=== PATIENT | male | born 1980 | race African-American/Black ===

== ENCOUNTER → 2016-07-27 | Emergency (ER) | payer OTHER ==
[~2016-07-27] MED LIST: INSULIN REGULAR HUMAN 100 UNITS/ML *VIAL IVPUSH ONE; INSULIN REGULAR HUMAN 100 UNITS/ML *VIAL ONE; SODIUM CHLORIDE 1,000 ML IV STA
[2016-07-27 18:38] VITALS: BMI 38.0
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
--- NOTE | 2016-07-27 20:05 | PDOC ---
*Physical Exam - Vital Signs Last Vital Signs Temp Pulse Resp BP Pulse Ox 98 F 99 H 18 155/89 99 07/27/16 18:35 07/27/16 18:35 07/27/16 18:35 07/27/16 18:35 07/27/16 18:35 ED Treatment Course - LABORATORY CBC & Chemistry Diagram: 07/27/16 19:50 07/27/16 23:19 Medical Decision Making - Medical Decision Making 07/27/16 20:05 agree with care from ANA MARIA Gibbons. Glucose is 742. Will give Regular insulin 10 units IVP and fluids to lower blood sugar *DC/Admit/Observation/Transfer Diagnosis at time of Disposition: Hyperglycemia - Discharge Dispostion Disposition: HOME Condition at time of disposition: Improved - Prescriptions Prescriptions: Glipizide [Glucotrol] 20 mg PO DAILY #30 tablet Metformin HCl [Metformin HCl ER] 500 mg PO BID #30 tab.er.24 Lisinopril [Prinivil -] 40 mg PO DAILY #30 tablet - Referrals Referrals: Cheri Diaz MD [Primary Care Provider] - - Patient Instructions Printed Discharge Instructions: DI for Hyperglycemia -- Adult Additional Instructions: Be Sure to fill the medication. 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
[2016-07-27 20:22] LABS: BASOPHIL 0.9 % (0-2.0); EOSINOPHIL 1.9 % (0-4.5); MCHC 32.7 g/dl (32.0-35.9); MEAN CELL VOLUME 82.5 fl (80-96); MEAN PLT VOLUME 9.5 fl (7.5-11.1); NEUTROPHILS 59.3 % (42.8-82.8); PLATELET COUNT 232 K/MM3 (134-434); RDW 13.6 % (11.9-15.9); WHITE BLOOD COUNT 6.1 K/mm3 (4.0-10.0)
[2016-07-27 20:42] LABS: ALBUMIN 3.4 g/dl (3.4-5.0)
[2016-07-27 20:44] LABS: BILIRUBIN,TOTAL 0.8 mg/dL (0.2-1.0); TOT PROT 7.5 g/dl (6.4-8.2)
[2016-07-28 01:48] VITALS: TEMP 98.6
[2016-07-28 03:06] VITALS: BP 133/74; PULSE 82
== END | disposition home or self-care (01) ==
LOC: JER 18:24
PROC: 3E033VG Introduction of Insulin into Peripheral Vein, Percutaneous Approach (ICD-10-PCS; principal; 2016-07-27)
PROC: 3E0337Z Introduction of Electrolytic and Water Balance Substance into Peripheral Vein, Percutaneous Approach (ICD-10-PCS; 2016-07-27)
DX: E11.65 Type 2 diabetes mellitus with hyperglycemia (principal); I10 Essential (primary) hypertension; Z79.84 Long term (current) use of oral hypoglycemic drugs
CPT/HCPCS: 36415; 80053; 82947; 83605; 85025; 96361; 96374; 96376; 99283-25

== ENCOUNTER 2016-09-14 23:23 | Emergency (ER) | payer OTHER ==
[2016-09-15 01:05] VITALS: BP 135/93; PULSE 77; TEMP 98.5; BMI 27.9
[2016-09-15] MEDS ORDERED: SODIUM CHLORIDE 1,000 ML IV STA (01:11)
--- NOTE | 2016-09-15 01:12 | PDOC ---
History of Present Illness - General Chief Complaint: Blood Sugar Problem Stated Complaint: BLOOD SUGAR PROBLEM Time Seen by Provider: 09/15/16 00:42 History Source: Patient - History of Present Illness Initial Comments: 09/15/16 01:45 36 year old male c/o " my sugar is high." i drank a slushee and i have dry mouth." patient reports polyuria. patient reports no diabetes meds x 5 days. history of NIDDM Past History - Travel Traveled outside of the country in the last 30 days: Yes Close contact w/someone who was outside of country & ill: No - Past Medical History Allergies/Adverse Reactions: Allergies Allergy/AdvReac Type Severity Reaction Status Date / Time No Known Allergies Allergy Verified 09/15/16 01:05 Home Medications: Ambulatory Orders Glipizide [Glucotrol] 20 mg PO DAILY #30 tablet 09/15/16 Lisinopril [Prinivil -] 40 mg PO DAILY #30 tablet 09/15/16 Metformin HCl [Metformin HCl ER] 1,000 mg PO BID 09/15/16 Cephalexin [Keflex] 500 mg PO TID #21 capsule 09/30/16 Diabetes: Yes HTN: Yes - Immunization History Immunization Up to Date: Yes - Psycho/Social/Smoking Cessation Hx Suicidal Ideation: No Smoking History: Unknown if ever smoked Have you smoked in the past 12 months: No Number of Cigarettes Smoked Daily: 0 Cigars Per Day: 0 Hx Alcohol Use: No Drug/Substance Use Hx: No Review of Systems - Review of Systems Able to Perform ROS?: Yes Is the patient limited Sami proficient: No Constitutional: No: Symptoms Reported, See HPI, Chills, Diaphoresis, Fever, Loss of Appetite, Malaise, Night Sweats, Weakness, Weight Stable, Unintentional Wgt. Loss, Unexplained wgt Loss, Other ABD/GI: Yes: Other (dry mouth , polyuria) *Physical Exam - Vital Signs Last Vital Signs Temp Pulse Resp BP Pulse Ox 98.5 F 77 16 135/93 96 09/15/16 01:00 09/15/16 01:00 09/15/16 01:00 09/15/16 01:00 09/15/16 01:00 - Physical Exam General Appearance: Yes: Appropriately Dressed Respiratory/Chest: positive: Lungs Clear, Normal Breath Sounds Cardiovascular: positive: Regular Rhythm, Regular Rate Gastrointestinal/Abdominal: positive: Normal Bowel Sounds, Soft Musculoskeletal: positive: Normal Inspection Extremity: positive: Normal Capillary Refill, Normal Inspection, Normal Range of Motion Integumentary: positive: Normal Color, Dry, Warm Neurologic: positive: Fully Oriented, Alert, Normal Mood/Affect ED Treatment Course - LABORATORY CBC & Chemistry Diagram: 09/15/16 01:38 09/15/16 01:38 Medical Decision Making - Medical Decision Making 09/15/16 01:58 A hyperglycemia p : IVF normal saline bolus. dextrose stick. close endocrine follow up. repeat blood glucose decreasing. *DC/Admit/Observation/Transfer Diagnosis at time of Disposition: Hyperglycemia - Discharge Dispostion Disposition: HOME - Prescriptions Prescriptions: Glipizide [Glucotrol] 20 mg PO DAILY #30 tablet Lisinopril [Prinivil -] 40 mg PO DAILY #30 tablet - Referrals Referrals: Jayson Mcmullen MD [Primary Care Provider] - - Patient Instructions Printed Discharge Instructions: DI for Hyperglycemia -- Adult Additional Instructions: follow up with your doctor/ endocrinology as soon as possible. avoid food with high sugar content return to the ER if symptoms worsen.
[2016-09-15 01:52] LABS: MCHC 33.9 g/dl (32.0-35.9); MEAN CELL VOLUME 79.6 fl (80-96); MEAN PLT VOLUME 9.2 fl (7.5-11.1); PLATELET COUNT 282 K/MM3 (134-434); WHITE BLOOD COUNT 7.6 K/mm3 (4.0-10.0)
[2016-09-15 02:18] LABS: ALBUMIN 3.3 g/dl (3.4-5.0); BILIRUBIN,TOTAL 0.6 mg/dL (0.2-1.0); CALCIUM 9.1 mg/dL (8.5-10.1); COCKROFT - GAULT 88.2; CREATININE 1.5 mg/dL (0.7-1.3); TOT PROT 7.5 g/dl (6.4-8.2)
[2016-09-15] MEDS ORDERED: INSULIN REGULAR HUMAN 100 UNITS/ML *VIAL SQ ONE (03:33)
[2016-09-15] MEDS ORDERED: INSULIN REGULAR HUMAN 100 UNITS/ML *VIAL ONE (03:55)
== END 2016-09-15 06:45 | disposition home or self-care (01) ==
LOC: JER 23:23
PROC: 3E013VG Introduction of Insulin into Subcutaneous Tissue, Percutaneous Approach (ICD-10-PCS; principal; 2016-09-14)
PROC: 3E0337Z Introduction of Electrolytic and Water Balance Substance into Peripheral Vein, Percutaneous Approach (ICD-10-PCS; 2016-09-14)
DX: R73.9 Hyperglycemia, unspecified (principal); D11.9 Benign neoplasm of major salivary gland, unspecified; I10 Essential (primary) hypertension
CPT/HCPCS: 36415; 80053; 85027; 96360; 96372; 99282-25

== ENCOUNTER 2016-09-30 04:47 | Emergency (ER) | payer OTHER ==
[2016-09-30] MEDS ORDERED: CEPHALEXIN MONOHYDRATE 500 MG CAPSULE (UD) PO ONE (04:56)
--- NOTE | 2016-09-30 05:00 | PDOC ---
History of Present Illness - General Stated Complaint: ABSCESS/GROIN Time Seen by Provider: 09/30/16 04:50 - History of Present Illness Initial Comments: 09/30/16 05:00 36-year-old male presents to the emergency department complaining of a hard nodule to the mid pubic area. Patient states he noticed it approximately 5 hours ago denies any fever, chills, drainage, red streaks, swelling, difficulty urinating, abdominal discomfort. Patient admits to shaving his pubic area, last time was yesterday. Patient states sometimes he will get ingrown hair causing an abscess. Patient denies any drainage but states the area is the size of a nickel and is hard. Past History - Past Medical History Allergies/Adverse Reactions: Allergies Allergy/AdvReac Type Severity Reaction Status Date / Time No Known Allergies Allergy Verified 09/15/16 01:05 Home Medications: Ambulatory Orders Glipizide [Glucotrol] 20 mg PO DAILY #30 tablet 09/15/16 Lisinopril [Prinivil -] 40 mg PO DAILY #30 tablet 09/15/16 Metformin HCl [Metformin HCl ER] 1,000 mg PO BID 09/15/16 Cephalexin [Keflex] 500 mg PO TID #21 capsule 09/30/16 Diabetes: Yes HTN: Yes - Immunization History Immunization Up to Date: Yes - Psycho/Social/Smoking Cessation Hx Suicidal Ideation: No Smoking History: Unknown if ever smoked Have you smoked in the past 12 months: No Number of Cigarettes Smoked Daily: 0 Cigars Per Day: 0 Hx Alcohol Use: No Drug/Substance Use Hx: No Review of Systems - Review of Systems Able to Perform ROS?: Yes Comments:: 09/30/16 05:02 CONSTITUTIONAL: Absent: fever, chills, diaphoresis, generalized weakness, malaise, loss of appetite HEENT: Absent: rhinorrhea, nasal congestion, throat pain, throat swelling, difficulty swallowing, mouth swelling, ear pain, eye pain, visual Changes CARDIOVASCULAR: Absent: chest pain, loss of consciousness, palpitations, irregular heart rate, peripheral edema RESPIRATORY: Absent: cough, shortness of breath, dyspnea with exertion, orthopnea, wheezing, stridor, hemoptysis GASTROINTESTINAL: Absent: abdominal pain, abdominal distension, nausea, vomiting, diarrhea, constipation, melena, hematochezia GENITOURINARY: Absent: dysuria, frequency, urgency, hesitancy, hematuria, flank pain, genital pain MUSCULOSKELETAL: Absent: myalgia, arthralgia, joint swelling SKIN: mid superior pubic mid nodule/pain Absent: rash, itching, pallor HEMATOLOGIC/IMMUNOLOGIC: Absent: easy bleeding, easy bruising, lymphadenopathy, frequent infections ENDOCRINE: Absent: unexplained weight gain, unexplained weight loss, heat intolerance, cold intolerance NEUROLOGIC: Absent: headache, focal weakness or paresthesias, dizziness, unsteady gait, seizure, mental status changes, bladder or bowel incontinence PSYCHIATRIC: Absent: anxiety, depression, suicidal or homicidal ideation, hallucinations. Is the patient limited Indonesian proficient: No *Physical Exam - Physical Exam Comments: 09/30/16 05:02 GENERAL: Well developed, well nourished. Awake and alert. No acute distress. HEENT: Normocephalic, atraumatic. PERRLA, EOMI. No conjunctival pallor. Sclera are non- icteric. Moist mucous membranes. Oropharynx is clear. NECK: Supple. Full ROM. No JVD. Carotid pulses 2+ and symmetric, without bruits. No thyromegaly. No lymphadenopathy. CARDIOVASCULAR: Regular rate and rhythm. No murmurs, rubs, or gallops. Distal pulses are 2+ and symmetric. PULMONARY: No evidence of respiratory distress. Lungs clear to auscultation bilaterally. No wheezing, rales or rhonchi. ABDOMINAL: Soft. Non-tender. Non-distended. No rebound or guarding. No organomegaly. Normoactive bowel sounds. MUSCULOSKELETAL Normal range of motion at all joints. No bony deformities or tenderness. No CVA tenderness. EXTREMITIES: No cyanosis. No clubbing. No edema. No calf tenderness. SKIN: Mid public superior region/hard nodule without drainage, lymphangitis, erythema Warm and dry. Normal capillary refill. No rashes. No jaundice. NEUROLOGICAL: Alert, awake, appropriate. Cranial nerves 2-12 intact. No deficits to light touch and temperature in face, upper extremities and lower extremities. No motor deficits in the in face, upper extremities and lower extremities. Normoreflexic in the upper and lower extremities. Normal speech. Toes are down- going bilaterally. Gait is normal without ataxia. PSYCHIATRIC: Cooperative. Good eye contact. Appropriate mood and affect. *DC/Admit/Observation/Transfer Diagnosis at time of Disposition: Hidradenitis suppurativa - Discharge Dispostion Disposition: HOME Condition at time of disposition: Stable Admit: No - Prescriptions Prescriptions: Cephalexin [Keflex] 500 mg PO TID #21 capsule - Referrals Referrals: Jayson Mcmullen MD [Primary Care Provider] - Santosh Clement MD [Staff Physician] - - Patient Instructions Printed Discharge Instructions: Hidradenitis Suppurativa Additional Instructions: Warm compress to the groin area 2o mins on and 20 mins off for 48 hours while awake Tyelnol or motrin for pain Rx: keflex as prescribed Return to the ER for severe/persistent/worsening symptoms, red streaks, drainage , fever
[2016-09-30] MEDS ORDERED: CEPHALEXIN MONOHYDRATE 250 MG CAPSULE (FP) ONE (05:11)
--- NOTE | 2016-09-30 05:12 | PDOC ---
ED Treatment Course - Medications Given in the ED: ED Medications Discontinued Medications Generic Name Dose Route Start Last Admin Trade Name Mariann PRN Reason Stop Dose Admin Cephalexin HCl 500 mg 09/30/16 04:56 09/30/16 05:08 Keflex - PO 09/30/16 04:57 500 mg ONCE ONE Administration Medical Decision Making - Medical Decision Making 09/30/16 05:11 agree with care from ANA MARIA Gibbons *DC/Admit/Observation/Transfer Diagnosis at time of Disposition: Abscess - Discharge Dispostion Disposition: HOME Condition at time of disposition: Stable - Prescriptions Prescriptions: Cephalexin [Keflex] 500 mg PO TID #21 capsule - Referrals Referrals: Santosh Clement MD [Staff Physician] - Jayson Mcmullen MD [Primary Care Provider] - - Patient Instructions Printed Discharge Instructions: DI for Skin Abscess Additional Instructions: Warm compress to the groin area 2o mins on and 20 mins off for 48 hours while awake Tyelnol or motrin for pain Rx: keflex as prescribed Return to the ER for severe/persistent/worsening symptoms, red streaks, drainage , fever - Post Discharge Activity
[2016-09-30 05:16] VITALS: BP 126/81; PULSE 81; TEMP 97.7; BMI 39.3
== END 2016-09-30 05:34 | disposition home or self-care (01) ==
LOC: JER 04:47
DX: L73.2 Hidradenitis suppurativa (principal); I10 Essential (primary) hypertension; E11.9 Type 2 diabetes mellitus without complications; Z79.84 Long term (current) use of oral hypoglycemic drugs
CPT/HCPCS: 99282-25

== ENCOUNTER 2016-12-01 23:39 | Emergency (ER) | payer OTHER ==
[2016-12-01 23:43] VITALS: BMI 39.3
[2016-12-02 00:45] LABS: BASOPHIL 0.7 % (0-2.0); EOSINOPHIL 1.3 % (0-4.5); MCH 26.7 pg (25.7-33.7); MCHC 32.5 g/dl (32.0-35.9); MEAN CELL VOLUME 82.2 fl (80-96); MEAN PLT VOLUME 9.6 fl (7.5-11.1); NEUTROPHILS 70.9 % (42.8-82.8); PLATELET COUNT 238 K/MM3 (134-434); RDW 13.8 % (11.9-15.9); WHITE BLOOD COUNT 7.6 K/mm3 (4.0-10.0)
[2016-12-02 01:15] LABS: ANION GAP 11 (8-16); CALCIUM 8.5 mg/dL (8.5-10.1); CO2 26 mmol/L (21-32); CREATININE 1.9 mg/dL (0.7-1.3); SGOT/AST 40 U/L (15-37); SGPT/ALT 76 U/L (12-78)
--- NOTE | 2016-12-02 01:15 | PDOC ---
History of Present Illness - General Chief Complaint: Blood Sugar Problem Stated Complaint: BLOOD SUGAR PROBLEM Time Seen by Provider: 12/01/16 23:50 - History of Present Illness Initial Comments: 12/02/16 01:11 CHIEF COMPLAINT: high blood sugar HISTORY OF PRESENT ILLNESS: 36 yo M with hx of DM and HTN presents to ED with "high blood sugar." Patient states he ran out of his medications two weeks ago and saw his PCP Bijan Mcmullen for prescription refill, but the prescription "didn' t make it to the pharmacy when I went to go pick it up." Patient also complains of painful abscess to L buttock. He reports that "I popped it and it healed over but now it's big and painful again." No recent travel or sick contacts. PAST MEDICAL HISTORY: as per HPI SURGICAL HISTORY: Denies ALLERGIES: Pork REVIEW OF SYSTEMS General/Constitutional: "I felt tired today, I slept all day." HEENT: Denies change in vision. Cardiovascular: Denies chest pain or shortness of breath. Respiratory: Denies cough, wheezing, or hemoptysis. Gastrointestinal: Denies nausea, vomiting, diarrhea or constipation. Genitourinary: Denies dysuria, frequency, or change in urination. Skin: Abscess to L buttock. PHYSICAL EXAM General Appearance: Well-appearing, appropriately dressed. No apparent distress. HEENT: EOMI, PERRLA. Respiratory/Chest: Lungs CTAB. Cardiovascular: RRR. S1, S2. Gastrointestinal/Abdominal: Normal bowel sounds. Abdomen soft, non-distended. No tenderness or rebound tenderness. No organomegaly, pulsatile mass, guarding , hernia, hepatomegal Musculoskeletal/Extremities: Normal inspection. FROM of all extremities, normal capillary refill. Pelvis Stable. No CVA tenderness. No tenderness to extremities, pedal edema, swelling, erythema or deformity. Integumentary: 4 cm x 4 cm indurated abscess to L buttock. Appropriate color, dry, warm. 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 Fully oriented, alert. Appropriate mood/affect. Motor strength 5/5. No appreciable EOM palsy, facial droop or sensory deficit. 12/02/16 03:42 Past History - Past Medical History Allergies/Adverse Reactions: Allergies Allergy/AdvReac Type Severity Reaction Status Date / Time Pork/Porcine Containing Allergy Severe Hives Verified 12/01/16 23:43 Products No Known Drug Allergies Allergy Verified 12/01/16 23:43 Home Medications: Ambulatory Orders Glipizide [Glucotrol] 20 mg PO DAILY #30 tablet 09/15/16 Lisinopril [Prinivil -] 40 mg PO DAILY #30 tablet 09/15/16 Metformin HCl [Metformin HCl ER] 1,000 mg PO BID 09/15/16 Sulfamethoxazole/Trimethoprim [Bactrim Ds Tablet] 1 each PO BID #14 tablet 12/02 Diabetes: Yes HTN: Yes - Surgical History Abdominal Surgery: Yes (Umbilical hernia) Lung Surgery: Yes (Chest tube) - Immunization History Immunization Up to Date: Yes - Psycho/Social/Smoking Cessation Hx Suicidal Ideation: No Smoking History: Never smoked Have you smoked in the past 12 months: No Number of Cigarettes Smoked Daily: 0 Cigars Per Day: 0 Hx Alcohol Use: No Drug/Substance Use Hx: No Substance Use Type: None *Physical Exam - Vital Signs Last Vital Signs Temp Pulse Resp BP Pulse Ox 97.4 F L 79 18 141/90 99 12/01/16 23:40 12/01/16 23:40 12/01/16 23:40 12/01/16 23:40 12/01/16 23:40 Procedures - Incision and Drainage I&D Site: Left: Buttock Betadine cleansed: Yes Anesthesia: 1% Lidocaine w/ Epi Volume(ml): 8 Blade Size: 11 Attempts: 1 Iodinated Packin/2 in (~5 inches) Plain Packing: No Complications: none Dressing: Yes (abdominal pad, dry gauze) Progress: 12/02/16 03:48 I&D performed without complication. Approximately 3 cc of purulent drainage removed from abscess. Iodoform packing placed, covered with abdominal pad and dry gauze. ED Treatment Course - LABORATORY CBC & Chemistry Diagram: 12/02/16 00:33 12/02/16 00:33 - ADDITIONAL ORDERS Additional order review: 12/02/16 00:33 RBC 4.74 MCV 82.2 MCHC 32.5 RDW 13.8 MPV 9.6 Neutrophils % 70.9 Lymphocytes % 18.2 D Monocytes % 8.9 Eosinophils % 1.3 Basophils % 0.7 Medical Decision Making - Medical Decision Making 12/02/16 03:44 36 yo M with hx of DM and HTN presents to ED with "high blood sugar" and abscess to L buttock. -CBC, CMP, acetone -UA, UCx Labs: glucose 760 -8 units regular insulin IV -2 L normal saline Repeat BGM 539, trending down. Abscess drained (see procedure note). -repeat BMP 12/02/16 04:33 Repeat BMP - glucose 481, continues to trend down. Patient is asymptomatic at this time and is stable for discharge. Patient states that he is going to leaf size picker his medication as soon as he is discharged from the hospital. 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 insulin use: without half-way use Qualified Code(s ): E11.65 - Type 2 diabetes mellitus with hyperglycemia - Discharge Dispostion Disposition: HOME Condition at time of disposition: Improved Admit: No - Prescriptions Prescriptions: Sulfamethoxazole/Trimethoprim [Bactrim Ds Tablet] 1 each PO BID #14 tablet - Referrals Referrals: Jayson Mcmullen MD [Staff Physician] - - Patient Instructions Printed Discharge Instructions: DI for Hyperglycemia -- Adult, DI for Incision and Drainage of a Skin Abscess Additional Instructions: As discussed, you must leaf size picker your medication as soon as possible. Please take all your medications as prescribed. Keep the area of abscess clean and dry for the next 24 hours. Afterwards you may wash with mild soap and water. You must return in 2 days for removal of the packing material. If the packing material falls out, you must still return for reevaluation. If you develop fever, nausea, vomiting, diarrhea, increased pain, redness, or swelling to the site of the wound, please return to the ER immediately.
[2016-12-02 01:17] LABS: ALK PHOS 115 U/L (45-117); BILIRUBIN,TOTAL 0.6 mg/dL (0.2-1.0); TOT PROT 7.8 g/dl (6.4-8.2)
[2016-12-02 01:21] LABS: GLUCOSE,RANDOM 760 mg/dL (74-106)
[2016-12-02] MEDS ORDERED: INSULIN (NOVOLOG) ASPART 100 UNITS/ML 10ML VIAL SQ ONE (01:23)
[2016-12-02] MEDS ORDERED: SODIUM CHLORIDE 0.9% 1000 ML INFUS.BAG IV ONE (01:24)
[2016-12-02 01:26] LABS: ACETONE SERUM NEGATIVE (NEGATIVE)
[2016-12-02] MEDS ORDERED: SODIUM CHLORIDE 0.9% 500 ML INFUS.BAG IV ONE (01:30)
[2016-12-02] MEDS ORDERED: INSULIN REGULAR HUMAN 100 UNITS/ML *VIAL IVPUSH ONE (01:30)
[2016-12-02] MEDS ORDERED: INSULIN REGULAR HUMAN 100 UNITS/ML *VIAL ONE (01:35)
[2016-12-02 01:48] LABS: URINE APPEARANCE CLEAR; URINE BILIRUBIN NEGATIVE (NEGATIVE); URINE BLOOD NEGATIVE (NEGATIVE); URINE COLOR COLORLESS; URINE GLUCOSE (UA) 3+ (NEGATIVE); URINE KETONE NEGATIVE (NEGATIVE); URINE LEUK ESTERASE NEGATIVE (NEGATIVE); URINE NITRITE NEGATIVE (NEGATIVE); URINE UROBILINOGEN NEGATIVE mg/dL (0.2-1.0)
[2016-12-02 01:52] LABS: URINE PROTEIN 1+ (NEGATIVE)
[2016-12-02 01:55] LABS: URINE RBC <1 /hpf (0-3); URINE WBC <1 /hpf (3-5)
[2016-12-02] MEDS ORDERED: LIDOCAINE 1%/EPI 1:100000 (50 ML MULTI DOSE VIAL) ONE (03:04)
[2016-12-02 04:28] LABS: ANION GAP 8 (8-16); CALCIUM 8.2 mg/dL (8.5-10.1); CO2 28 mmol/L (21-32); CREATININE 1.5 mg/dL (0.7-1.3)
[2016-12-02 04:33] LABS: GLUCOSE,RANDOM 481 mg/dL (74-106)
[2016-12-02 04:45] VITALS: BP 152/63; PULSE 78; TEMP 98.2
== END 2016-12-02 04:46 | disposition home or self-care (01) ==
LOC: JER 23:39
PROC: 0J990ZZ Drainage of Buttock Subcutaneous Tissue and Fascia, Open Approach (ICD-10-PCS; principal; 2016-12-01)
PROC: 3E033VG Introduction of Insulin into Peripheral Vein, Percutaneous Approach (ICD-10-PCS; 2016-12-01)
DX: E11.65 Type 2 diabetes mellitus with hyperglycemia (principal); L02.31 Cutaneous abscess of buttock; Z79.84 Long term (current) use of oral hypoglycemic drugs; I10 Essential (primary) hypertension
CPT/HCPCS: 36415; 80048; 80053; 81003; 81015; 82009; 83605; 85025; 87070; 87086; 87186; 87205; 99283-25

== ENCOUNTER 2016-12-05 02:26 | Emergency (ER) | payer OTHER ==
[2016-12-05 02:34] VITALS: BP 131/86; PULSE 85; TEMP 97.9; BMI 39.3
--- NOTE | 2016-12-05 04:06 | PDOC ---
Attending Attestation - Resident Resident Name: Michael Mayorga - ED Attending Attestation I have performed the following: I have examined & evaluated the patient, The case was reviewed & discussed with the resident, I agree w/resident's findings & plan, Exceptions are as noted - HPI HPI: 12/05/16 04:04 36 yo M presenting to the ER for re evaluation of Left buttock abscess re evaluation Pt denies fevers or chills is currently taking antibiotics (+) tenderness - Physicial Exam PE: 12/05/16 04:06 Left buttock 1.5 cm laceration - Medical Decision Making 12/05/16 04:17 Left buttock wound indurated Will re pack Will ask pt to continue antibiotics Return to the ER for re evaluation Discharge Disposition - Diagnosis Abscess - Discharge Dispostion Disposition: HOME Condition at time of disposition: Stable Admit: No - Patient Instructions Printed Discharge Instructions: DI for Skin Abscess Additional Instructions: Thank you for coming to the ER today Please return to the ER in 48 hours for wound re evaluation Please continue taking antibiotics as prescribed
--- NOTE | 2016-12-05 04:29 | PDOC ---
Suture Removal/Wound Check HPI - History of Present Illness Chief Complaint: Revisit,Wound Recheck Stated Complaint: FOLLOW UP Time Seen by Provider: 12/05/16 03:06 History Source: Yes: Patient Exam Limitations: Yes: No Limitations Date of Last ED visit: 12/02/16 - Previous ED Treatment Type of procedure performed on last visit: Yes: I&D of Abscess Antibiotics Prescribed: Yes (Bactrim) Past History - Past Medical History Allergies/Adverse Reactions: Allergies Pork/Porcine Containing Products Allergy (Severe, Verified 12/05/16 02:32) Hives No Known Drug Allergies Allergy (Verified 12/05/16 02:32) Home Medications: Ambulatory Orders Glipizide [Glucotrol] 20 mg PO DAILY #30 tablet 09/15/16 Lisinopril [Prinivil -] 40 mg PO DAILY #30 tablet 09/15/16 Metformin HCl [Metformin HCl ER] 1,000 mg PO BID 09/15/16 Sulfamethoxazole/Trimethoprim [Bactrim Ds Tablet] 1 each PO BID #14 tablet 12/02 - Immunization History Immunizations Up to Date: Yes - Social History Smoking Status: Never smoked Number of Ciarettes Per Day: 0 Cigars Per Day: 0 Suture Removal/Wound Check PE - Physical Exam Laceration/Wound Check Symptoms: reports: Improved Comments: 12/05/16 04:28 left buttock Comments: 12/05/16 04:28 7cm circular area, darkened and slightly indurated with no purulence noted. Packing tape still in place. *Review of Systems - Review of Systems Constitutional: No: Symptoms Reported HEENTM: No: Symptoms Reported Respiratory: No: Symptoms reported Cardiac (ROS): No: Symptoms Reported ABD/GI: No: Symptoms Reported : No: Symptoms Reported Musculoskeletal: No: Symptoms Reported Integumentary: No: Symptoms Reported Neurological: No: Symptoms reported Procedures - Incision and Drainage Plain Packing: Yes (Removal of old packing, no purulence noted, repacked with plain packing ) Medical Decision Making - Medical Decision Making 12/05/16 04:31 36 yo M with hx of DM and HTN presents to ED for wound check of abscess to L buttock s/p I&D 3 days ago. Packing removed, slight induration, no purulence, repacked with plain packing. Redressed. D/C. Come back in 2 days.. *DC/Admit/Observation/Transfer Diagnosis at time of Disposition: Abscess, Abscess of left buttock, Follow-up arranged for 2-3 days - Discharge Dispostion Disposition: HOME Condition at time of disposition: Stable - Referrals Referrals: Jayson Mcmullen MD [Primary Care Provider] - - Patient Instructions Printed Discharge Instructions: DI for Skin Abscess Additional Instructions: Thank you for coming to the ER today Please return to the ER in 48 hours for wound re evaluation Please continue taking antibiotics as prescribed - Post Discharge Activity
== END 2016-12-05 04:45 | disposition home or self-care (01) ==
LOC: JER 02:26
DX: Z48.01 Encounter for change or removal of surgical wound dressing (principal); L02.31 Cutaneous abscess of buttock
CPT/HCPCS: 99281-25

== ENCOUNTER 2016-12-14 09:38 | Emergency (ER) | payer OTHER ==
[2016-12-14 09:46] VITALS: BP 140/77; PULSE 89; TEMP 98.3; BMI 38.6
--- NOTE | 2016-12-14 10:16 | PDOC ---
Suture Removal/Wound Check HPI - History of Present Illness Chief Complaint: Revisit,Wound Recheck Stated Complaint: FOLLOW-UP Time Seen by Provider: 12/14/16 10:09 History Source: Yes: Patient Exam Limitations: Yes: No Limitations Treated at: [facility] ED (Patient was here initially on 12/02/2016 for blood sugar evaluation as well as left buttock abscess, initial draining was performed on that day and packing was placed patient then followed up on . Area was redressed and packed again patient states that they told him to leave the packing in until he followed up in 2 days however patient states she's been busy and has not followed up. Has been in place since 12/05/16. Upon arrival, packing was removed foul odor was noted area is mildly indurated with no surrounding erythema or warmth. It appears to be responding well to Bactrim will extend Bactrim for another 5 days. Patient to follow-up at wound care or if any increased redness swelling or signs of infection will need to return back to ER.) Date of Last ED visit: 12/02/16 - Previous ED Treatment Type of procedure performed on last visit: Yes: I&D of Abscess Tetanus Immunization: Yes: Up to Date Past History - Past Medical History Allergies/Adverse Reactions: Allergies Pork/Porcine Containing Products Allergy (Severe, Verified 12/14/16 09:45) Hives No Known Drug Allergies Allergy (Verified 12/14/16 09:45) Home Medications: Ambulatory Orders Glipizide [Glucotrol] 20 mg PO DAILY #30 tablet 09/15/16 Lisinopril [Prinivil -] 40 mg PO DAILY #30 tablet 09/15/16 Metformin HCl [Metformin HCl ER] 1,000 mg PO BID 09/15/16 Sulfamethoxazole/Trimethoprim [Bactrim Ds Tablet] 1 each PO BID #14 tablet 12/02 Sulfamethoxazole/Trimethoprim [Bactrim Ds -] 1 tab PO BID #10 tablet 12/14/16 General: Yes: diabetes, hypertension Surgical History: Yes: No Surgical History - Immunization History Immunizations Up to Date: Yes - Social History Smoking Status: Never smoked Number of Ciarettes Per Day: 0 Cigars Per Day: 0 Suture Removal/Wound Check PE - Physical Exam Laceration/Wound Check Symptoms: reports: None, Improved. denies: Redness Current Severity Level: Mild *Review of Systems - Review of Systems Constitutional: No: Symptoms Reported Respiratory: No: Symptoms reported Cardiac (ROS): No: Symptoms Reported Musculoskeletal: No: Symptoms Reported Integumentary: Yes: Other ( area around incision mildly indurated, packing was removed, no erythema or warmth. ). No: Erythema Neurological: No: Symptoms reported Hematologic/Lymphatic: No: Symptoms Reported All Other Systems: Reviewed and Negative Medical Decision Making - Medical Decision Making 12/14/16 10:21 *DC/Admit/Observation/Transfer Diagnosis at time of Disposition: Wound check, abscess - Discharge Dispostion Disposition: HOME Condition at time of disposition: Good Admit: No - Prescriptions Prescriptions: Sulfamethoxazole/Trimethoprim [Bactrim Ds -] 1 tab PO BID #10 tablet - Referrals Referrals: Jayson Mcmullen MD [Primary Care Provider] - - Patient Instructions Printed Discharge Instructions: DI for Wound Infection Additional Instructions: Please monitor daily for any increased redness swelling or signs of infection. Antibiotics as ordered for the next 5 days please make sure to change dressing daily dry dressing, make sure to showering cleanse area with warm water and antibacterial soap. Allow to air dry before applying new dressing
== END 2016-12-14 10:26 | disposition home or self-care (01) ==
LOC: JER 09:38 → JERFT 09:38
DX: Z48.01 Encounter for change or removal of surgical wound dressing (principal); L02.31 Cutaneous abscess of buttock
CPT/HCPCS: 99281-25

== ENCOUNTER 2017-06-02 23:53 | Emergency (ER) | payer OTHER ==
[2017-06-03 01:17] VITALS: BP 122/88; PULSE 91; TEMP 98.4; BMI 40.6
[2017-06-03] MEDS ORDERED: SODIUM CHLORIDE 1,000 ML IV STA (01:29)
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
[2017-06-03 01:54] LABS: VENOUS PC02 40.1 mmHg (38-52); VENOUS PH 7.41 (7.32-7.42)
[2017-06-03 01:55] LABS: VENOUS PO2 37.7 mmHg (28-48)
[2017-06-03 02:02] LABS: BASO % 0.9 % (0-2.0); EOS % 1.4 % (0-4.5); HEMOGLOBIN 12.1 GM/dL (11.7-16.9); LYMPH % 26.6 % (8-40); MCH 26.6 pg (25.7-33.7); MCHC 32.8 g/dl (32.0-35.9); MEAN CELL VOLUME 81.3 fl (80-96); MEAN PLT VOLUME 8.8 fl (7.5-11.1); MONO % 9.2 % (3.8-10.2); NEUT % 61.9 % (42.8-82.8); PLATELET COUNT 267 K/MM3 (134-434); RBC 4.55 M/mm3 (4.00-5.60); RDW 13.6 % (11.9-15.9); WHITE BLOOD COUNT 7.2 K/mm3 (4.0-10.0)
[2017-06-03 02:29] LABS: ALBUMIN 2.8 g/dl (3.4-5.0); ANION GAP 6 (8-16); BLOOD UREA NITROGEN 16 mg/dL (7-18); CALCIUM 8.4 mg/dL (8.5-10.1); CHLORIDE 100 mmol/L (98-107); CO2 28 mmol/L (21-32); CREATININE 1.7 mg/dL (0.7-1.3); GLUCOSE,RANDOM 288 mg/dL (74-106); SGOT/AST 25 U/L (15-37); SGPT/ALT 52 U/L (12-78); SODIUM 134 mmol/L (136-145)
[2017-06-03 02:31] LABS: ALK PHOS 89 U/L (45-117); BILIRUBIN,TOTAL 0.7 mg/dL (0.2-1.0); TOT PROT 7.5 g/dl (6.4-8.2)
== END 2017-06-03 03:45 | disposition home or self-care (01) ==
LOC: JER 23:53
PROC: 3E0337Z Introduction of Electrolytic and Water Balance Substance into Peripheral Vein, Percutaneous Approach (ICD-10-PCS; principal; 2017-06-02)
DX: E11.65 Type 2 diabetes mellitus with hyperglycemia (principal); Z79.84 Long term (current) use of oral hypoglycemic drugs; I10 Essential (primary) hypertension
CPT/HCPCS: 36415; 80053; 82009; 82803; 82962; 85025; 99282-25

== ENCOUNTER 2018-06-18 03:53 | Emergency (ER) | payer OTHER ==
--- NOTE | 2018-06-18 04:14 | PDOC ---
History of Present Illness - General Stated Complaint: FALL/LEG SWOLLEN Time Seen by Provider: 06/18/18 04:07 History Source: Patient, Old Records Exam Limitations: No Limitations - History of Present Illness Initial Comments: 06/18/18 04:15 HISTORY OF PRESENT ILLNESS: 38-year-old male past medical history NIDDM who presents emergency department for evaluation of right knee pain status post slip and fall at 11:00 in the morning on 06/17. Patient stated he twisted his knee on the way to the ground after slipping on ice. He fell to the ground but did not strike his knee on any railings or the ground. Patient denies striking his head. Patient reports he was able to get up and walk immediately after the injury but the pain has not improved since that time which is why he is seeking care now. No recent travel or sick contacts. PAST MEDICAL HISTORY: NIDDM SURGICAL HISTORY: Denies ALLERGIES: No known drug allergies REVIEW OF SYSTEMS General/Constitutional: Denies fever or chills. Denies weakness, weight change. HEENT: Denies change in vision. Denies ear pain or discharge. Denies sore throat. Cardiovascular: Denies chest pain or shortness of breath. Respiratory: Denies cough, wheezing, or hemoptysis. Gastrointestinal: Denies nausea, vomiting, diarrhea or constipation. Denies rectal bleeding. Genitourinary: Denies dysuria, frequency, or change in urination. Musculoskeletal:Right knee swelling and pain. Denies neck or back pain. Skin and breasts: Denies rash or easy bruising. Neurologic: Denies headache, vertigo, loss of consciousness, or loss of sensation. Psychiatric: Denies depression or anxiety. Endocrine: Denies increased thirst. Denies abnormal weight change. Hematologic/Lymphatic: Denies anemia, easy bleeding, or history of blood clots. Allergic/Immunologic: Denies hives or skin allergy. Denies latex allergy. PHYSICAL EXAM General Appearance: Well-appearing, appropriately dressed. No apparent distress , no intoxication. Respiratory/Chest: Lungs CTAB. No shortness of breath, chest tenderness, respiratory distress, accessory muscle use. No crackles, rales, rhonchi, stridor , wheezing, dullness Cardiovascular: RRR. S1, S2. No JVD, murmur, bradycardia, tachycardia. Vascular Pulses: Dorsalis-Pedis (R): 2+, Dorsalis-Pedis (L): 2+ Musculoskeletal/Extremities: Normal inspection. Normal capillary refill. Pelvis Stable. No CVA tenderness. No tenderness to extremities, pedal edema, swelling, erythema or deformity. (-)Cassandra's test. Decreased flexion of right knee due to pain. Patella is mobile. Swelling present to infrapatellar region. No bony tenderness. Integumentary: Appropriate color, dry, warm. No cyanosis, erythema, jaundice or rash Neurologic: lure maker II-XII intact. Fully oriented, alert. Appropriate mood/affect. Motor strength 5/5. No appreciable EOM palsy, facial droop or sensory deficit. Past History - Past Medical History Allergies/Adverse Reactions: Allergies Allergy/AdvReac Type Severity Reaction Status Date / Time Pork/Porcine Containing Allergy Severe Hives Verified 06/18/18 04:18 Products No Known Drug Allergies Allergy Verified 06/18/18 04:18 Home Medications: Ambulatory Orders Glipizide [Glucotrol] 20 mg PO DAILY #30 tablet 09/15/16 Lisinopril [Prinivil -] 40 mg PO DAILY #30 tablet 09/15/16 metFORMIN HCL [Metformin ER Osmotic] 1,000 mg PO BID 09/15/16 COPD: No Diabetes: Yes HTN: Yes - Surgical History Abdominal Surgery: Yes (Umbilical hernia) Lung Surgery: Yes (Chest tube) - Immunization History Immunization Up to Date: Yes - Suicide/Smoking/Psychosocial Hx Smoking History: Never smoked Have you smoked in the past 12 months: No Number of Cigarettes Smoked Daily: 0 Cigars Per Day: 0 Hx Alcohol Use: No Drug/Substance Use Hx: No Substance Use Type: None Medical Decision Making - Medical Decision Making 06/18/18 04:19 A/P: 38-year-old male with right knee pain status post slip and fall on ice Patient is ambulatory with limp Negative Cassandra test No bony tenderness to palpation Swelling present in the infrapatellar region X-rays Motrin 600 mg orally now Reassess 06/18/18 04:28 X-rays of the knee as read by me: No acute fractures or subluxations present. Knee immobilizer Crutches Discharge home *DC/Admit/Observation/Transfer Diagnosis at time of Disposition: Right medial knee pain - Discharge Dispostion Disposition: HOME Condition at time of disposition: Stable Decision to Admit order: No - Referrals Referrals: Jayson Mcmullen MD [Primary Care Provider] - Kirby Ferrera MD [Staff Physician] - - Patient Instructions Additional Instructions: Take Tylenol or Motrin as needed for pain. Follow manufacturers instructions for appropriate dosage. Try not to walk or bear weight on your right knee as much as possible for the next 3 days. Apply ice for 20 minutes and removed for at least 20 minutes before reapplying the ice. Keep immobilizer on your knee as much as possible to control pain. Whenever possible keep her foot elevated. You've been given the number for an orthopedist. If symptoms do not resolve within the next 7 days call the orthopedist for further evaluation. Return to emergency department for discoloration of the foot, numbness or tingling to the foot, worsening pain, or any other concerns. Thank you very much for choosing us to provide your emergent healthcare needs. - Post Discharge Activity
[2018-06-18] MEDS ORDERED: IBUPROFEN 600 MG TABLET (FP) PO ONE ×2 (04:15→04:26)
[2018-06-18 04:19] VITALS: BP 147/67; PULSE 88; TEMP 97.3; BMI 35.2
== END 2018-06-18 04:38 | disposition home or self-care (01) ==
LOC: JER 03:53
DX: M25.561 Pain in right knee (principal); W00.2XXA Other fall from one level to another due to ice and snow, initial encounter; Y93.89 Activity, other specified; Y92.480 Sidewalk as the place of occurrence of the external cause; Y99.8 Other external cause status; I10 Essential (primary) hypertension; E11.9 Type 2 diabetes mellitus without complications; Z79.84 Long term (current) use of oral hypoglycemic drugs
CPT/HCPCS: 73560-TC-RT-FY; 99283-25

== ENCOUNTER 2018-08-16 18:01 | Emergency (ER) | payer OTHER ==
[2018-08-16 18:05] VITALS: BP 142/89; PULSE 79; TEMP 98.4; BMI 36.6
--- NOTE | 2018-08-16 18:06 | PDOC ---
Rapid Medical Evaluation Time Seen by Provider: 08/16/18 18:02 Medical Evaluation: Allergies Allergy/AdvReac Type Severity Reaction Status Date / Time Pork/Porcine Containing Allergy Severe Hives Verified 06/18/18 04:18 Products No Known Drug Allergies Allergy Verified 06/18/18 04:18 08/16/18 18:02 Pt presents to the ED for evaluation of his blood sugar. Pt states his glucometer is broken. Pt with IDDM. Admits to dry mouth and urinary frequency, polydipsia Exam: NAD, ambulatory Orders; labs, IV insert urine Pt to proceed to the ED for further evaluation Discharge Disposition - Diagnosis Polydipsia - Referrals - Patient Instructions - Post Discharge Activity
--- NOTE | 2018-08-16 19:18 | PDOC ---
Attending Attestation - Resident Resident Name: Janie Potter - ED Attending Attestation I have performed the following: I have examined & evaluated the patient, The case was reviewed & discussed with the resident, I agree w/resident's findings & plan
--- NOTE | 2018-08-16 20:24 | PDOC ---
Attending Attestation - HPI HPI: 08/16/18 20:25 Patient is a 38 year old male with a significant past medical history of Diabetes, who presents to the ED requesting multiple medication refills. Patient reports being non compliant with medication for multiple weeks stating he has been unable to refill his prescription of insulin as well as lisinopril and metformin due to inssues with his medical insurance. He denies any current complaints while in the ED but he states he does not own a glucometer and wants his blood sugar checked. Denies chest pain, Sob. Denies nausea, vomiting. Denies fevers, chills. Denies dysuria, hematuria. Denies constipation, diarrhea. Denies contact with sick individuals, out of state travelling. Denies any other symptoms. Allergies: NKDA Social history: No smoking. No alcohol. No illicit drugs. Surgical history: None PMD: Dr. Mcmullen - Physicial Exam PE: 08/16/18 20:25 Agree with residents Physical Exam. <Bossman Scott - Last Filed: 08/16/18 20:25> - Resident Resident Name: Eliseo Vazquez - ED Attending Attestation I have performed the following: I have examined & evaluated the patient, The case was reviewed & discussed with the resident, I agree w/resident's findings & plan - Medical Decision Making 08/16/18 21:04 38-year-old male requesting medication refill for his antihypertensives as well as insulin and oral hypoglycemics Patient has no additional complaints at this time Plan for blood sugar check and discharged with scripts as indicated He states he does have a primary care physician which she does have access to and will follow up with them <Lali Goldberg - Last Filed: 08/16/18 21:07>
--- NOTE | 2018-08-16 20:49 | PDOC ---
History of Present Illness - General Chief Complaint: Blood Sugar Problem Stated Complaint: SUGAR PROBLEM Time Seen by Provider: 08/16/18 18:02 History Source: Patient Exam Limitations: No Limitations - History of Present Illness Initial Comments: 08/16/18 20:49 Patient is a 38M with history of IDDM and HTN here today complaining of blood sugar issues. He states that he ran out of his insulin, htn meds, and metformin for the past several weeks due to insurance issues. He also reports that he doesn't have a glucometer. He denies other complaints. Denies fevers, chills, nausea, vomiting, chest pain, dysuria. Endorses dry mouth and urinary frequency. Denies abdominal pain. Past History - Past Medical History Allergies/Adverse Reactions: Allergies Allergy/AdvReac Type Severity Reaction Status Date / Time Pork/Porcine Containing Allergy Severe Hives Verified 06/18/18 04:18 Products No Known Drug Allergies Allergy Verified 06/18/18 04:18 Home Medications: Ambulatory Orders Glipizide [Glucotrol] 20 mg PO DAILY #30 tablet 09/15/16 Lisinopril [Prinivil -] 40 mg PO DAILY #30 tablet 09/15/16 metFORMIN HCL [Metformin ER Osmotic] 1,000 mg PO BID 09/15/16 Lisinopril [Prinivil -] 40 mg PO DAILY #30 tablet 08/16/18 Metformin HCl [Glucophage] 500 mg PO BID #60 tablet 08/16/18 COPD: No Diabetes: Yes HTN: Yes - Surgical History Abdominal Surgery: Yes (Umbilical hernia) Lung Surgery: Yes (Chest tube) - Immunization History Immunization Up to Date: Yes - Suicide/Smoking/Psychosocial Hx Smoking History: Former smoker Have you smoked in the past 12 months: No Number of Cigarettes Smoked Daily: 0 If you are a former smoker, when did you quit?: long time ago Cigars Per Day: 0 Information on smoking cessation initiated: No Hx Alcohol Use: No Drug/Substance Use Hx: No Substance Use Type: None Review of Systems - Review of Systems Able to Perform ROS?: Yes Comments:: 08/16/18 20:58 GENERAL/CONSTITUTIONAL: No fever or chills. No weakness. HEAD, EYES, EARS, NOSE AND THROAT: No change in vision. No sore throat. CARDIOVASCULAR: No chest pain or shortness of breath RESPIRATORY: No cough, wheezing, or hemoptysis. GASTROINTESTINAL: No nausea, vomiting, diarrhea or constipation. GENITOURINARY: No dysuria, +polyuria MUSCULOSKELETAL: No joint or muscle swelling or pain. No neck or back pain. SKIN: No rash NEUROLOGIC: No headache, vertigo, loss of consciousness, or change in strength/ sensation. ENDOCRINE: No increased thirst. No abnormal weight change HEMATOLOGIC/LYMPHATIC: No anemia, easy bleeding, or history of blood clots. ALLERGIC/IMMUNOLOGIC: No hives or skin allergy. *Physical Exam - Vital Signs Last Vital Signs Temp Pulse Resp BP Pulse Ox 98.4 F 79 18 142/89 97 08/16/18 18:04 08/16/18 18:04 08/16/18 18:04 08/16/18 18:04 08/16/18 18:04 - Physical Exam Comments: 08/16/18 20:58 GENERAL: Awake, alert, and fully oriented, in no acute distress HEAD: No signs of trauma, normocephalic, atraumatic EYES: PERRLA, EOMI, sclera anicteric, conjunctiva clear ENT: Auricles normal inspection, hearing grossly normal, nares patent, oropharynx clear without exudates. Moist mucosa NECK: Normal ROM, supple, no lymphadenopathy, JVD, or masses LUNGS: No distress, speaks full sentences, clear to auscultation bilaterally HEART: Regular rate and rhythm, normal S1 and S2, no murmurs, rubs or gallops, peripheral pulses normal and equal bilaterally. ABDOMEN: Soft, nontender, normoactive bowel sounds. No guarding, no rebound. No masses EXTREMITIES: Normal inspection, Normal range of motion, no edema. No clubbing or cyanosis. NEUROLOGICAL: Cranial nerves II through XII grossly intact. Normal speech, normal gait, no focal sensorimotor deficits SKIN: Warm, Dry, normal turgor, no rashes or lesions noted. ED Treatment Course - LABORATORY CBC & Chemistry Diagram: 08/16/18 21:10 08/16/18 21:10 - ADDITIONAL ORDERS Additional order review: Laboratory Results 08/16/18 20:15 POC Glucometer 330 08/16/18 20:15 POC Glucometer 330 Medical Decision Making - Medical Decision Making 08/16/18 20:59 Patient is a 38M here today seeking medication refills and blood sugar check. Fingerstick is 330. No signs of dka or infectious process. Will order basic labs , give sq insulin, dc with home meds. Takes lisinopril 40, metformin 500. Will not prescribe insulin as he is unsure of dose. Has PCP. Instructed to f/u. 08/16/18 22:03 CBC normal. CMP shows no gap. No acetone. Cr mildly elevated. Pending insulin and glucose recheck. Will discharge with instructions to follow up with PCP. *DC/Admit/Observation/Transfer Diagnosis at time of Disposition: Hyperglycemia - Discharge Dispostion Condition at time of disposition: Good Decision to Admit order: No - Prescriptions Prescriptions: Lisinopril [Prinivil -] 40 mg PO DAILY #30 tablet Metformin HCl [Glucophage] 500 mg PO BID #60 tablet - Referrals Referrals: Jayson Mcmullen MD [Primary Care Provider] - - Patient Instructions Printed Discharge Instructions: DI for Hyperglycemia -- Adult Additional Instructions: Please follow up with your primary care physician this week. Please return if you have any new, worsening or concerning symptoms, especially fever, chest pain and shortness of breath. - Post Discharge Activity
[2018-08-16] MEDS ORDERED: INSULIN REGULAR HUMAN 100 UNITS/ML *VIAL SQ ONE (21:00)
[2018-08-16 21:20] LABS: BASO % 0.9 % (0-2.0); EOS % 2.1 % (0-4.5); HEMATOCRIT 39.7 % (35.4-49); LYMPH % 23.6 % (8-40); MCH 26.6 pg (25.7-33.7); MCHC 32.8 g/dl (32.0-35.9); MEAN CELL VOLUME 80.9 fl (80-96); NEUT % 65.4 % (42.8-82.8); PLATELET COUNT 263 K/MM3 (134-434); RDW 14.3 % (11.9-15.9); WHITE BLOOD COUNT 8.9 K/mm3 (4.0-10.0)
[2018-08-16] MEDS ORDERED: INSULIN REGULAR HUMAN 100 UNITS/ML *VIAL ONE (21:45)
[2018-08-16] MEDS ORDERED: INSULIN (NOVOLOG) ASPART 100 UNITS/ML 10ML VIAL ONE (21:47)
[2018-08-16 21:55] LABS: ALBUMIN 3.5 g/dl (3.4-5.0); ALK PHOS 98 U/L (45-117); ANION GAP 8 MMOL/L (8-16); BILIRUBIN,TOTAL 0.7 mg/dL (0.2-1); BLOOD UREA NITROGEN 22 mg/dL (7-18); CALCIUM 9.1 mg/dL (8.5-10.1); CHLORIDE 102 mmol/L (98-107); CO2 24 mmol/L (21-32); CREATININE 1.7 mg/dL (0.55-1.3); POTASSIUM 3.9 mmol/L (3.5-5.1); SGOT/AST 7 U/L (15-37); SGPT/ALT 17 U/L (13-61); SODIUM 134 mmol/L (136-145); TOT PROT 7.7 g/dl (6.4-8.2)
[2018-08-16 21:57] LABS: GLUCOSE,RANDOM 332 mg/dL (74-106)
[2018-08-16 22:01] LABS: ACETONE SERUM NEGATIVE (NEGATIVE)
== END 2018-08-16 23:42 | disposition home or self-care (01) ==
LOC: JER 18:01
PROC: 3E013VG Introduction of Insulin into Subcutaneous Tissue, Percutaneous Approach (ICD-10-PCS; principal; 2018-08-16)
DX: E11.65 Type 2 diabetes mellitus with hyperglycemia (principal); Z87.891 Personal history of nicotine dependence; I10 Essential (primary) hypertension
CPT/HCPCS: 36415; 80053; 82009; 82962; 85025; 99281-25

== ENCOUNTER 2018-09-07 02:49 | Emergency (ER) | payer SELFPAY ==
[2018-09-07 03:17] VITALS: TEMP 97.1; BMI 37.3
[2018-09-07] MEDS ORDERED: SODIUM CHLORIDE 1,000 ML IV STA ×2 (03:22)
[2018-09-07 03:56] LABS: VENOUS PC02 47.5 mmHg (41-51); VENOUS PH 7.34 (7.31-7.41); VENOUS PO2 39.1 mmHg (30-40)
--- NOTE | 2018-09-07 04:02 | PDOC ---
History of Present Illness - General Chief Complaint: Blood Sugar Problem Stated Complaint: BLOOD SUGAR PROBLEM Time Seen by Provider: 09/07/18 03:20 - History of Present Illness Initial Comments: 09/07/18 03:56 38 yo M with h/o IDDM, hidradenitis, who p/w hyperglycemia. Patient reports 3-4 days of increased urinary frequency, dry mouth, and general malaise. States that he typically feels this way when his blood sugar is high and uncontrolled. The last time he took home insulin regimen ( Lantus, and Novolog) was one week ago. States that he ran out of insurance to purchase medications. Does not check his blood sugars at home. Reports h/o ICU admission for high blood sugars. Patient denies BOLAÑOS, vision change, palpitations, cough, wheezing, orthopena, PND , leg swelling/pain, N/V, F,C, CP, SOB, hematuria, dysuria, BPR, abdominal pain , diarrhea, constipation, lightheadedness, weakness, sensory changes. PMHx: as noted above ROS: as noted Allergies: NKDA PMD: Kirby Mcmullen Past History - Past Medical History Allergies/Adverse Reactions: Allergies Allergy/AdvReac Type Severity Reaction Status Date / Time Pork/Porcine Containing Allergy Severe Hives Verified 06/18/18 04:18 Products No Known Drug Allergies Allergy Verified 06/18/18 04:18 Home Medications: Ambulatory Orders Glipizide [Glucotrol] 20 mg PO DAILY #30 tablet 09/15/16 Lisinopril [Prinivil -] 40 mg PO DAILY #30 tablet 09/15/16 metFORMIN HCL [Metformin ER Osmotic] 1,000 mg PO BID 09/15/16 Lisinopril [Prinivil -] 40 mg PO DAILY #30 tablet 08/16/18 Metformin HCl [Glucophage] 500 mg PO BID #60 tablet 08/16/18 COPD: No Diabetes: Yes HTN: Yes - Surgical History Abdominal Surgery: Yes (Umbilical hernia) Lung Surgery: Yes (Chest tube) - Immunization History Immunization Up to Date: Yes - Suicide/Smoking/Psychosocial Hx Smoking History: Former smoker Have you smoked in the past 12 months: No Number of Cigarettes Smoked Daily: 0 If you are a former smoker, when did you quit?: long time ago Cigars Per Day: 0 Information on smoking cessation initiated: Yes Hx Alcohol Use: No Drug/Substance Use Hx: No Substance Use Type: None Review of Systems - Review of Systems Comments:: 09/07/18 03:59 GENERAL/CONSTITUTIONAL:+ Fatigue. No fever or chills. HEAD, EYES, EARS, NOSE AND THROAT: No change in vision. No ear pain or discharge. No sore throat. CARDIOVASCULAR: No chest pain or shortness of breath RESPIRATORY: No cough, wheezing, or hemoptysis. GASTROINTESTINAL: No nausea, vomiting, diarrhea or constipation. GENITOURINARY:+ Frequency. No dysuria. MUSCULOSKELETAL: No joint or muscle swelling or pain. No neck or back pain. SKIN: No rash NEUROLOGIC: No headache, vertigo, loss of consciousness, or change in strength/ sensation. ENDOCRINE: No increased thirst. No abnormal weight change HEMATOLOGIC/LYMPHATIC: No anemia, easy bleeding, or history of blood clots. ALLERGIC/IMMUNOLOGIC: No hives or skin allergy. *Physical Exam - Vital Signs Last Vital Signs Temp Pulse Resp BP Pulse Ox 97.1 F L 85 20 142/90 98 09/07/18 03:00 09/07/18 03:00 09/07/18 03:00 09/07/18 03:00 09/07/18 03:00 - Physical Exam Comments: 09/07/18 03:59 GENERAL: Awake, alert, and fully oriented, in no acute distress HEAD: No signs of trauma, normocephalic, atraumatic EYES: PERRLA, EOMI, sclera anicteric, conjunctiva clear ENT: + Dry mucous membranes. Auricles normal inspection, hearing grossly normal , nares patent, oropharynx clear without exudates. NECK: Normal ROM, supple, no lymphadenopathy, JVD, or masses LUNGS: No distress, speaks full sentences, clear to auscultation bilaterally HEART: Regular rate and rhythm, normal S1 and S2, no murmurs, rubs or gallops, peripheral pulses normal and equal bilaterally. ABDOMEN: Soft, nontender, normoactive bowel sounds. No guarding, no rebound. No masses EXTREMITIES : Normal inspection, Normal range of motion, no edema. No clubbing or cyanosis. NEUROLOGICAL: Cranial nerves II through XII grossly intact. Normal speech, normal gait, no focal sensorimotor deficits SKIN: Warm, Dry, normal turgor, no rashes or lesions noted ED Treatment Course - LABORATORY CBC & Chemistry Diagram: 09/07/18 06:34 09/07/18 03:44 - ADDITIONAL ORDERS Additional order review: Laboratory Results 09/07/18 03:17 POC Glucometer 564 09/07/18 03:17 POC Glucometer 564 Medical Decision Making - Medical Decision Making 09/07/18 03:58 38 yo M with h/o IDDM, hidradenitis, who p/w hyperglycemia. Patient reports 3-4 days of increased urinary frequency, dry mouth, and general malaise. Vitals wnl , AF, A&OX3. Physical exam unremarkable. + dry mucous membranes. BS~564. Has not taken hoem insulin x 1 week. Denies denies BOLAÑOS, vision change, palpitations, cough, wheezing, orthopena, PND, leg swelling/pain, N/V, F,C, CP, SOB, hematuria , dysuria, BPR, abdominal pain, diarrhea, constipation, lightheadedness, weakness, sensory changes. Will assess for hyperglycemia vs. DKA vs. HHS.Will assess for electrolyte abnml, metabolic and toxic derangements, acid-base disturbances, infection (cystitis). ED Course: NS 2 L 09/07/18 04:03 09/07/18 06:02 10 U Insulin Repeat BS 500 10 U Insulin ~615AM VBG: Unremarkable UA: 3+ GLU 09/07/18 06:54 Pt. endorsed to day team. Stable Pending BG, and supervisor case loading consult for non covered medication with insurance *DC/Admit/Observation/Transfer Diagnosis at time of Disposition: Hyperglycemia - Discharge Dispostion Condition at time of disposition: Stable Decision to Admit order: No - Referrals Referrals: Jayson Mcmullen MD [Primary Care Provider] - - Patient Instructions Printed Discharge Instructions: DI for Hyperglycemia -- Adult Additional Instructions: Please return to the emergency department with any new or worsening symptoms or concerns. Please follow up with your primary care physician within 72 hours. - Post Discharge Activity
--- NOTE | 2018-09-07 04:05 | PDOC ---
Attending Attestation - Resident Resident Name: Carlitos Schneiderson - ED Attending Attestation I have performed the following: I have examined & evaluated the patient, The case was reviewed & discussed with the resident, I agree w/resident's findings & plan - HPI HPI: 09/07/18 04:03 38 yo M with h/o IDDM, hidradenitis, who p/w hyperglycemia. + 3-4 days of increased urinary frequency, dry mouth, and general weakness. history of poorly controlled diabetes and hyperglycemia. The last time he took home insulin regimen ( Lantus, and Novolog) was one week ago. States that he ran out of insurance to purchase medications. Does not check his blood sugars at home. - Physicial Exam PE: 09/07/18 04:04 Agree with the resident's HPI and PE as documented in the electronic medical record. NAD, well appearing, PERRL, EOMI, MMM, nl conjunctiva, anicteric; neck supple. lungs clear, RRR, abdomen soft nontender. BATPISTE x4, no focal neuro deficits. No peripheral edema. normal color for ethnicity, WWP. - Medical Decision Making 09/07/18 04:04 See HPI for details Vital signs reviewed, wnl. DDx DKA, HHS, hyperglycemia, electrolyte/metabolic derangements, medication noncompliance. Prior notes reviewed, including admissions, discharges and consultations. laboratory results and imaging reviewed, basic labs and lytes wnl, notable for normal VBG, neg for ketones/acetones. hyperglycemia w/o e/o AG acidosis or significant derangements UA_glucosuria, no e/o ketosis or infection. ED course - IVF, insulin and recheck blood sugar - no e/o ketosis, acidosis; hyperglycemia fro lack of meds and poor compliance with medication/insurance issues. - recheck has to call PMD in the AM with Dr Mcmullen, who he has been under care x 20 years and manages his diabetes primarily. Pt to be discharged in stable condition. Patient and family made aware of impression and plan, return precautions discussed (including but not limited to worsening pain or symptoms), fevers, or signs of infection, chest pain, respiratory distress, inability to tolerate oral intake, dehydration, syncope, or neurologic changes). Follow up with PMD as recommended, follow up information provided, take medications as instructed for duration of time. continue with supportive care, avoid triggers and precipitants. All questions answered to patient's satisfaction and expressed understanding and comfort with this. Patient does not suffer from an acute life-threatening medical condition at this time she is safe for outpatient follow-up. 09/07/18 05:02 09/07/18 07:32
[2018-09-07] MEDS ORDERED: INSULIN (NOVOLOG) ASPART 100 UNITS/ML 10ML VIAL SQ ONE ×2 (04:06→05:47)
[2018-09-07] MEDS ORDERED: INSULIN (NOVOLOG) ASPART 100 UNITS/ML 10ML VIAL ONE ×2 (04:21→06:11)
[2018-09-07 05:39] LABS: PH,URINE 5.5 (5.0-8.0); URINE APPEARANCE CLEAR; URINE BILIRUBIN NEGATIVE (NEGATIVE); URINE COLOR YELLOW; URINE GLUCOSE (UA) 3+ (NEGATIVE); URINE KETONE NEGATIVE (NEGATIVE); URINE LEUK ESTERASE NEGATIVE (NEGATIVE); URINE NITRITE NEGATIVE (NEGATIVE); URINE PROTEIN TRACE (NEGATIVE); URINE UROBILINOGEN 0.2 mg/dL (0.2-1.0)
[2018-09-07 06:20] LABS: ALBUMIN 3.5 g/dl (3.4-5.0); ALK PHOS 103 U/L (45-117); ANION GAP 9 MMOL/L (8-16); BILIRUBIN,TOTAL 0.5 mg/dL (0.2-1); BLOOD UREA NITROGEN 28 mg/dL (7-18); CALCIUM 8.6 mg/dL (8.5-10.1); CHLORIDE 96 mmol/L (98-107); CO2 27 mmol/L (21-32); CREATININE 2.2 mg/dL (0.55-1.3); POTASSIUM 4.7 mmol/L (3.5-5.1); SGOT/AST 13 U/L (15-37); SGPT/ALT 20 U/L (13-61); SODIUM 131 mmol/L (136-145); TOT PROT 7.6 g/dl (6.4-8.2)
[2018-09-07 06:23] LABS: GLUCOSE,RANDOM 583 mg/dL (74-106)
[2018-09-07 06:59] LABS: BASO % 0.7 % (0-2.0); EOS % 2.1 % (0-4.5); HEMATOCRIT 35.1 % (35.4-49); HEMOGLOBIN 11.7 GM/dL (11.7-16.9); LYMPH % 29.6 % (8-40); MCH 26.9 pg (25.7-33.7); MCHC 33.4 g/dl (32.0-35.9); MEAN CELL VOLUME 80.6 fl (80-96); MONO % 9.2 % (3.8-10.2); NEUT % 58.4 % (42.8-82.8); PLATELET COUNT 255 K/MM3 (134-434); RBC 4.35 M/mm3 (4.00-5.60); WHITE BLOOD COUNT 7.5 K/mm3 (4.0-10.0)
--- NOTE | 2018-09-07 07:30 | PDOC ---
*Physical Exam - Vital Signs Last Vital Signs Temp Pulse Resp BP Pulse Ox 97.1 F L 85 20 142/90 98 09/07/18 03:00 09/07/18 03:00 09/07/18 03:00 09/07/18 03:00 09/07/18 03:00 ED Treatment Course - LABORATORY CBC & Chemistry Diagram: 09/07/18 06:34 09/07/18 03:44 - ADDITIONAL ORDERS Additional order review: Laboratory Results 09/07/18 09/07/18 09/07/18 07:11 05:20 05:09 VBG pH POC VBG pCO2 POC VBG pO2 VBG HCO3 VBG O2 Sat (Ronnie) VBG Base Excess Sodium Potassium Chloride Carbon Dioxide Anion Gap BUN Creatinine Creat Clearance w eGFR POC Glucometer 293 500 Random Glucose Calcium Total Bilirubin AST ALT Alkaline Phosphatase Total Protein Albumin Urine Color Yellow Urine Appearance Clear Urine pH 5.5 Ur Specific [place] 1.025 Urine Protein Trace Urine Glucose (UA) 3+ H Urine Ketones Negative Urine Blood Negative Urine Nitrite Negative Urine Bilirubin Negative Urine Urobilinogen 0.2 Ur Leukocyte Esterase Negative Acetone, Qual 09/07/18 09/07/18 09/07/18 03:44 03:44 03:44 VBG pH 7.34 POC VBG pCO2 47.5 POC VBG pO2 39.1 VBG HCO3 25.2 VBG O2 Sat (Ronnie) 67.9 L VBG Base Excess -0.4 Sodium 131 L Potassium 4.7 Chloride 96 L Carbon Dioxide 27 Anion Gap 9 BUN 28 H Creatinine 2.2 H Creat Clearance w eGFR 33.32 POC Glucometer Random Glucose 583 H* Calcium 8.6 Total Bilirubin 0.5 AST 13 L ALT 20 Alkaline Phosphatase 103 Total Protein 7.6 Albumin 3.5 Urine Color Urine Appearance Urine pH Ur Specific [place] Urine Protein Urine Glucose (UA) Urine Ketones Urine Blood Urine Nitrite Urine Bilirubin Urine Urobilinogen Ur Leukocyte Esterase Acetone, Qual Negative 09/07/18 03:17 VBG pH POC VBG pCO2 POC VBG pO2 VBG HCO3 VBG O2 Sat (Ronnie) VBG Base Excess Sodium Potassium Chloride Carbon Dioxide Anion Gap BUN Creatinine Creat Clearance w eGFR POC Glucometer 564 Random Glucose Calcium Total Bilirubin AST ALT Alkaline Phosphatase Total Protein Albumin Urine Color Urine Appearance Urine pH Ur Specific [place] Urine Protein Urine Glucose (UA) Urine Ketones Urine Blood Urine Nitrite Urine Bilirubin Urine Urobilinogen Ur Leukocyte Esterase Acetone, Qual 09/07/18 09/07/18 09/07/18 07:11 05:20 03:17 POC Glucometer 293 500 564 - Medications Given in the ED: ED Medications Discontinued Medications Generic Name Dose Route Start Last Admin Trade Name Mariann PRN Reason Stop Dose Admin Sodium Chloride 1,000 mls @ 1,000 mls/hr 09/07/18 03:22 09/07/18 03:40 Normal Saline - IV 09/07/18 04:21 1,000 mls/hr ASDIR STA Administration Sodium Chloride 1,000 mls @ 1,000 mls/hr 09/07/18 03:22 09/07/18 05:27 Normal Saline - IV 09/07/18 04:21 1,000 mls/hr ASDIR STA Administration Insulin Aspart 10 units 09/07/18 04:06 09/07/18 04:24 Novolog Vial SQ 09/07/18 04:07 10 unit ONCE ONE Administration Protocol Insulin Aspart 10 units 09/07/18 05:47 09/07/18 06:13 Novolog Vial SQ 09/07/18 05:48 10 unit ONCE ONE Administration Protocol Medical Decision Making - Medical Decision Making 09/07/18 07:25 Sign-out received from outgoing Emergency Physician Dr. Aguilera and Dr. Joaquin Pt interviewed and examined Ancillary studies reviewed Case discussed in detail with oncoming Emergency Physician including history, physical exam and ancillary studies. Vital Signs Temp Pulse Resp BP Pulse Ox 97.1 F L 85 20 142/90 98 09/07/18 03:00 09/07/18 03:00 09/07/18 03:00 09/07/18 03:00 09/07/18 03:00 I have spoken with the patient. He is nontoxic appearing patient and affirms to me that he has missed few doses of insulin as he ran out. Currently he is having some insurance difficulties but states that he will pay out of pocket for his lantus 40u qhs and sliding scale novolog. The patient's sugar has improved dramatically and the patient feels comfortable going home. Pt has received IVF. Pt will follow up with his doctors. Pt's CKD is stable. I discussed the physical exam findings, ancillary test results and final diagnoses with the patient. I answered all of the patient's questions. The patient was satisfied with the care received and felt comfortable with the discharge plan and treatment plan. The patient will call their primary care physician within 24 hours to arrange follow-up and will return to the Emergency Department with any new, persistant or worsening symptoms. *DC/Admit/Observation/Transfer Diagnosis at time of Disposition: Hyperglycemia - Discharge Dispostion Disposition: HOME Condition at time of disposition: Stable Decision to Admit order: No - Prescriptions Prescriptions: Insulin Glargine,Hum.rec.anlog [Lantus Solostar PEN (NF)] 40 units SQ DAILY #1 pen Insulin Sliding Scale [Novolog Vial Sliding Scale -] 12 units SQ TIDAC PRN #2 pen PRN Reason: Diabetes - Referrals Referrals: Jayson Mcmullen MD [Primary Care Provider] - - Patient Instructions Printed Discharge Instructions: DI for Hyperglycemia -- Adult Additional Instructions: Please return to the emergency department with any new or worsening symptoms or concerns. Please follow up with your primary care physician within 72 hours. - Post Discharge Activity Forms/Work/School Notes: Back to Work
[2018-09-07 07:37] VITALS: BP 140/78; PULSE 80
== END 2018-09-07 07:37 | disposition home or self-care (01) ==
LOC: JER 02:49
PROC: 3E0337Z Introduction of Electrolytic and Water Balance Substance into Peripheral Vein, Percutaneous Approach (ICD-10-PCS; principal; 2018-09-07)
PROC: 3E0337Z Introduction of Electrolytic and Water Balance Substance into Peripheral Vein, Percutaneous Approach (ICD-10-PCS; 2018-09-07)
PROC: 3E013VG Introduction of Insulin into Subcutaneous Tissue, Percutaneous Approach (ICD-10-PCS; 2018-09-07)
PROC: 3E013VG Introduction of Insulin into Subcutaneous Tissue, Percutaneous Approach (ICD-10-PCS; 2018-09-07)
DX: E10.65 Type 1 diabetes mellitus with hyperglycemia (principal); Z79.4 Long term (current) use of insulin
CPT/HCPCS: 36415; 80053; 81003; 82009; 82803; 82962; 85025; 99281-25; J7030

== ENCOUNTER 2018-11-19 13:39 | Emergency (ER) | payer OTHER ==
[2018-11-19 13:43] VITALS: BP 129/77; PULSE 81; TEMP 97.8; BMI 36.6
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
[2018-11-19] MEDS ORDERED: SODIUM CHLORIDE 0.9% 500 ML INFUS.BAG IV ONE (14:09)
[2018-11-19 14:32] LABS: BASO % 1.1 % (0-2.0); EOS % 1.5 % (0-4.5); HEMATOCRIT 38.8 % (35.4-49); HEMOGLOBIN 12.9 GM/dL (11.7-16.9); LYMPH % 18.2 % (8-40); MCHC 33.4 g/dl (32.0-35.9); MEAN CELL VOLUME 80.9 fl (80-96); MONO % 6.1 % (3.8-10.2); NEUT % 73.1 % (42.8-82.8); RDW 14.6 % (11.9-15.9); WHITE BLOOD COUNT 8.8 K/mm3 (4.0-10.0)
[2018-11-19 14:40] LABS: PLATELET COUNT 256 K/MM3 (134-434)
[2018-11-19] MEDS ORDERED: INSULIN REGULAR HUMAN 100 UNITS/ML *VIAL IVPUSH ONE (14:55)
[2018-11-19] MEDS ORDERED: INSULIN REGULAR HUMAN 100 UNITS/ML *VIAL ONE (15:01)
[2018-11-19 15:05] LABS: ALBUMIN 3.6 g/dl (3.4-5.0); BLOOD UREA NITROGEN 14.4 mg/dL (7-18); CALCIUM 8.9 mg/dL (8.5-10.1); CREATININE 1.9 mg/dL (0.55-1.3); POTASSIUM 4.4 mmol/L (3.5-5.1); TOT PROT 7.8 g/dl (6.4-8.2)
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
== END 2018-11-19 16:22 | disposition home or self-care (01) ==
LOC: JER 13:39
PROC: 3E013VG Introduction of Insulin into Subcutaneous Tissue, Percutaneous Approach (ICD-10-PCS; principal; 2018-11-19)
PROC: 3E0337Z Introduction of Electrolytic and Water Balance Substance into Peripheral Vein, Percutaneous Approach (ICD-10-PCS; 2018-11-19)
DX: E10.65 Type 1 diabetes mellitus with hyperglycemia (principal); Z79.4 Long term (current) use of insulin; I10 Essential (primary) hypertension; K21.9 Gastro-esophageal reflux disease without esophagitis
CPT/HCPCS: 36415; 80053; 82009; 82962; 85025; 96372; 99283-25

== ENCOUNTER 2021-12-19 20:02 | Emergency (ER) | payer OTHER ==
[2021-12-19 20:28] VITALS: RESP 19; TEMP 98.6; BMI 26.6
[2021-12-19] MEDS ORDERED: BEBTELOVIMAB (EUA) 175 MG/2 ML VIAL IVPUSH ONE (21:31)
[2021-12-19 22:59] VITALS: BP 148/88; PULSE 85
== END 2021-12-19 22:59 | disposition home or self-care (01) ==
LOC: JER 20:02
PROC: 3E033GC Introduction of Other Therapeutic Substance into Peripheral Vein, Percutaneous Approach (ICD-10-PCS; principal; 2021-12-19)
DX: U07.1 COVID-19 (principal)
CPT/HCPCS: 0241U-QW; 96374; 99284-25; M0222; Q0222

== ENCOUNTER 2021-12-24 20:27 | Emergency (ER) | payer OTHER ==
[2021-12-24 20:59] VITALS: BP 159/89; PULSE 82; RESP 18; TEMP 97.9; BMI 36.6
== END 2021-12-24 23:05 | disposition left against medical advice (07) ==
LOC: JER 20:27
DX: U07.1 COVID-19 (principal)
CPT/HCPCS: 99281-25

== ENCOUNTER 2022-04-15 23:43 | Observation (INO) | payer OTHER ==
[2022-04-16] VITALS: BMI 36.6
[2022-04-16] MEDS ORDERED: LISINOPRIL 20 MG TABLET PO ONE (00:52)
[2022-04-16] MEDS ORDERED: LISINOPRIL 20 MG TABLET ONE (01:43)
[2022-04-16] MEDS ORDERED: amLODIPine BESYLATE 10 MG TABLET (FP) PO ONE (05:57)
[2022-04-16] MEDS ORDERED: amLODIPine BESYLATE 10 MG TABLET (FP) ONE (06:09)
[2022-04-16 07:57] LABS: INR 1.08 (0.83-1.09); PROTHROMBIN TIME (PATIENT) 12.4 SEC (9.7-13.0)
[2022-04-16 08:04] LABS: ALBUMIN 3.4 g/dl (3.4-5.0); BASO % 0.5 % (0-2.0); CALCIUM 8.8 mg/dL (8.5-10.1); EOS % 2.5 % (0-4.5); HEMATOCRIT 31.5 % (35.4-49); HEMOGLOBIN 10.1 GM/dL (11.7-16.9); LYMPH % 29.3 % (8-40); MCH 26.1 pg (25.7-33.7); MCHC 32.1 g/dl (32.0-35.9); MEAN CELL VOLUME 81.3 fl (80-96); MEAN PLT VOLUME 8.7 fl (7.5-11.1); MONO % 8.7 % (3.8-10.2); PLATELET COUNT 329 10^3/uL (134-434); RBC 3.87 M/mm3 (4.00-5.60); RDW 15.4 % (11.9-15.9); WHITE BLOOD COUNT 8.6 K/mm3 (4.0-10.0)
[2022-04-16 08:05] LABS: BLOOD UREA NITROGEN 35.6 mg/dL (7-18)
[2022-04-16 08:09] LABS: BILIRUBIN,TOTAL 0.4 mg/dL (0.2-1); TOT PROT 7.4 g/dl (6.4-8.2)
[2022-04-16] MEDS ORDERED: hydrALAZINE HCL 20 MG/ML VIAL IVPUSH ONE (09:00)
[2022-04-16] MEDS ORDERED: hydrALAZINE HCL 20 MG/ML VIAL ONE (09:15)
[2022-04-16] MEDS ORDERED: ATORVASTATIN CA 80 MG TABLET (FP) PO ONE (10:53)
[2022-04-16 10:55] LABS: HIV INTERPRETATION NEGATIVE (NEGATIVE)
[2022-04-16] MEDS: INSULIN SLIDING SCALE (NOVOLOG) 1 VIAL SQ SCH ×3 (12:21→21:44)
[2022-04-16] MEDS ORDERED: ATORVASTATIN CA 80 MG TABLET (FP) ONE (12:26)
[2022-04-16] MEDS ORDERED: ACETAMINOPHEN 325 MG TABLET (FP) PO PRN (15:23)
[2022-04-16] MEDS ORDERED: ACETAMINOPHEN 325 MG TABLET (FP) ONE (16:37)
[2022-04-17 07:05] LABS: BASO % 0.6 % (0-2.0); EOS % 2.5 % (0-4.5); HEMOGLOBIN 10.4 GM/dL (11.7-16.9); LYMPH % 24.6 % (8-40); MCH 26.1 pg (25.7-33.7); MCHC 32.4 g/dl (32.0-35.9); MEAN CELL VOLUME 80.6 fl (80-96); MEAN PLT VOLUME 8.7 fl (7.5-11.1); MONO % 6.4 % (3.8-10.2); NEUT % 65.9 % (42.8-82.8); PLATELET COUNT 343 10^3/uL (134-434); RBC 3.97 M/mm3 (4.00-5.60); RDW 15.3 % (11.9-15.9); WHITE BLOOD COUNT 8.3 K/mm3 (4.0-10.0)
[2022-04-17 07:23] LABS: ALBUMIN 3.3 g/dl (3.4-5.0); BLOOD UREA NITROGEN 37.2 mg/dL (7-18); MAGNESIUM 1.6 mg/dL (1.8-2.4)
[2022-04-17] MEDS: INSULIN SLIDING SCALE (NOVOLOG) 1 VIAL SQ SCH ×3 (07:24→17:12)
[2022-04-17 07:26] LABS: CREATININE 4.9 mg/dL (0.55-1.3); PHOSPHOROUS 4.3 mg/dL (2.5-4.9)
[2022-04-17 07:28] LABS: BILIRUBIN,TOTAL 1.1 mg/dL (0.2-1); TOT PROT 7.2 g/dl (6.4-8.2)
[2022-04-17 08:07] LABS: INR 1.16 (0.83-1.09); PROTHROMBIN TIME (PATIENT) 13.4 SEC (9.7-13.0)
[2022-04-17 08:08] LABS: ACTIVATED PTT 34.1 SECONDS (25.2-36.5)
[2022-04-17] MEDS ORDERED: amLODIPine BESYLATE 5 MG TABLET (FP) ONE (08:41)
[2022-04-17] MEDS ORDERED: MAGNESIUM SULFATE IN WATER 2 GM/50 ML IVPB IVPB ONE (08:41)
[2022-04-17] MEDS ORDERED: MAGNESIUM SULF 50% (8.12 MEQ/2 ML-1 GM VIAL) IVPB ONE (08:45)
[2022-04-17] MEDS: amLODIPine BESYLATE 5 MG TABLET (FP) PO SCH (08:54)
[2022-04-17] MEDS ORDERED: hydrALAZINE HCL 25 MG TABLET (FP) ONE ×2 (13:21→20:16)
[2022-04-17] MEDS: hydrALAZINE HCL 25 MG TABLET (FP) PO SCH ×2 (13:25→21:14)
[2022-04-17 13:30] LABS: COCAINE, UR NEGATIVE (NEGATIVE); METHADONE, UR NEGATIVE (NEGATIVE); OPIATES, URI NEGATIVE (NEGATIVE); URINE AMPHETAMINES NEGATIVE (NEGATIVE)
[2022-04-17 13:31] LABS: PHENCYCLIDINE,URINE NEGATIVE (NEGATIVE)
[2022-04-17 13:32] LABS: URINE BARBITURATES NEGATIVE (NEGATIVE); URINE BENZODIAZEPINES NEGATIVE (NEGATIVE)
[2022-04-17] MEDS ORDERED: HEPARIN NA (PORCINE) 5,000 UNITS/ML 1ML VIAL ONE (20:17)
[2022-04-17] MEDS ORDERED: ATORVASTATIN CA 40 MG TABLET (FP) ONE (20:17)
[2022-04-17] MEDS: HEPARIN NA (PORCINE) 5,000 UNITS/ML 1ML VIAL SQ SCH (21:15)
[2022-04-17] MEDS ORDERED: ATORVASTATIN CA 40 MG TABLET (FP) PO SCH (22:00)
[2022-04-18 04:34] VITALS: RESP 20; TEMP 98.3
[2022-04-18] MEDS ORDERED: hydrALAZINE HCL 25 MG TABLET (FP) ONE ×2 (05:19→14:02)
[2022-04-18] MEDS ORDERED: HEPARIN NA (PORCINE) 5,000 UNITS/ML 1ML VIAL ONE ×2 (05:19→14:02)
[2022-04-18] MEDS: HEPARIN NA (PORCINE) 5,000 UNITS/ML 1ML VIAL SQ SCH ×2 (05:22→16:15)
[2022-04-18] MEDS: hydrALAZINE HCL 25 MG TABLET (FP) PO SCH ×2 (05:22→16:15)
[2022-04-18] MEDS: INSULIN SLIDING SCALE (NOVOLOG) 1 VIAL SQ SCH ×3 (05:23→16:56)
[2022-04-18] MEDS ORDERED: INSULIN (LEVEMIR) 100 UNITS/ML UNITS SQ SCH (07:00)
[2022-04-18] MEDS ORDERED: SODIUM CHLORIDE 0.45% 1,000 ML IV SCH (08:30)
[2022-04-18 09:15] LABS: BASO % 0.7 % (0-2.0); EOS % 2.7 % (0-4.5); HEMOGLOBIN 9.9 GM/dL (11.7-16.9); LYMPH % 23.3 % (8-40); MCH 26.1 pg (25.7-33.7); MEAN CELL VOLUME 81.3 fl (80-96); MEAN PLT VOLUME 8.8 fl (7.5-11.1); MONO % 8.5 % (3.8-10.2); NEUT % 64.8 % (42.8-82.8); PLATELET COUNT 321 10^3/uL (134-434); RBC 3.81 M/mm3 (4.00-5.60); RDW 14.9 % (11.9-15.9); WHITE BLOOD COUNT 7.9 K/mm3 (4.0-10.0)
[2022-04-18 09:21] LABS: ALBUMIN 3.2 g/dl (3.4-5.0); BLOOD UREA NITROGEN 40.5 mg/dL (7-18); CALCIUM 8.5 mg/dL (8.5-10.1); MAGNESIUM 1.9 mg/dL (1.8-2.4)
[2022-04-18 09:24] LABS: PHOSPHOROUS 4.2 mg/dL (2.5-4.9)
[2022-04-18 09:25] LABS: BILIRUBIN,TOTAL 0.4 mg/dL (0.2-1); CREATININE 5.4 mg/dL (0.55-1.3); TOT PROT 7.2 g/dl (6.4-8.2)
[2022-04-18] MEDS ORDERED: amLODIPine BESYLATE 5 MG TABLET (FP) ONE (11:56)
[2022-04-18] MEDS: amLODIPine BESYLATE 5 MG TABLET (FP) PO SCH (12:02)
[2022-04-18 15:21] VITALS: BP 165/94; PULSE 86
[2022-04-18] MEDS ORDERED: amLODIPine BESYLATE 5 MG TABLET (FP) PO ONE (17:59)
[2022-04-19] MEDS ORDERED: amLODIPine BESYLATE 10 MG TABLET (FP) PO SCH (10:00)
[2022-04-20 16:07] LABS: ATYPICAL pANCA <1:20 titer (Neg:<1:20); C-ANCA <1:20 titer (Neg:<1:20)
== END 2022-04-18 18:50 | disposition left against medical advice (07) ==
LOC: JER 23:43 → JERBED 04-16 08:13 → INTOOBSV 04-16 08:13
PROVIDERS: ADMIT Internal Medicine; ATTEND Internal Medicine
PROC: 3E023GC Introduction of Other Therapeutic Substance into Muscle, Percutaneous Approach (ICD-10-PCS; principal; 2022-04-16)
PROC: 3E013VG Introduction of Insulin into Subcutaneous Tissue, Percutaneous Approach (ICD-10-PCS; 2022-04-16)
PROC: 3E0337Z Introduction of Electrolytic and Water Balance Substance into Peripheral Vein, Percutaneous Approach (ICD-10-PCS; 2022-04-16)
PROC: 3E033GC Introduction of Other Therapeutic Substance into Peripheral Vein, Percutaneous Approach (ICD-10-PCS; 2022-04-16)
DX: E11.22 Type 2 diabetes mellitus with diabetic chronic kidney disease (principal); I13.10 Hypertensive heart and chronic kidney disease without heart failure, with stage 1 through stage 4 chronic kidney disease, or unspecified chronic kidney disease; N18.9 Chronic kidney disease, unspecified; U07.1 COVID-19; R80.9 Proteinuria, unspecified; I16.0 Hypertensive urgency; Z79.4 Long term (current) use of insulin; Z91.018 Allergy to other foods
CPT/HCPCS: 0241U-QW; 36415; 76775-TC; 76856-TC; 80053; 80307; 82570; 82962; 83036; 83520; 83735; 84100; 84155; 84156; 84165; 84443; 84484; 85025; 85610; 85730; 86256; 87340; 87389; 87517; 93005; 93010; 96372; 96374; 96375; 99285-25; G0378; J1644

== ENCOUNTER 2022-04-21 01:07 | Emergency (ER) | payer OTHER ==
[2022-04-21 01:15] VITALS: BP 152/83; PULSE 87; RESP 18; TEMP 98.2; BMI 36.6
== END 2022-04-21 04:12 | disposition home or self-care (01) ==
LOC: JER 01:07
DX: Z01.30 Encounter for examination of blood pressure without abnormal findings (principal)
CPT/HCPCS: 93005; 93010; 99283-25

== ENCOUNTER 2022-08-24 23:12 | Inpatient (IN) | payer OTHER ==
[2022-08-25 04:18] LABS: BASO % 0.9 % (0-2.0); EOS % 2.9 % (0-4.5); HEMATOCRIT 28.2 % (35.4-49); HEMOGLOBIN 9.3 GM/dL (11.7-16.9); MCH 25.9 pg (25.7-33.7); MEAN CELL VOLUME 78.4 fl (80-96); MEAN PLT VOLUME 8.6 fl (7.5-11.1); MONO % 10.7 % (3.8-10.2); NEUT % 59.5 % (42.8-82.8); PLATELET COUNT 278 10^3/uL (134-434); RDW 15.4 % (11.9-15.9); WHITE BLOOD COUNT 5.8 K/mm3 (4.0-10.0)
[2022-08-25 04:38] LABS: CHLORIDE 105 mmol/L (98-107); SODIUM 140 mmol/L (136-145)
[2022-08-25 04:40] LABS: ALBUMIN 3.3 g/dl (3.4-5.0); ANION GAP 7 MMOL/L (8-16); BLOOD UREA NITROGEN 73.1 mg/dL (7-18); CALCIUM 8.3 mg/dL (8.5-10.1); CO2 27 mmol/L (21-32); GLUCOSE,RANDOM 227 mg/dL (74-106); MAGNESIUM 1.7 mg/dL (1.8-2.4)
[2022-08-25 04:43] LABS: SGOT/AST 20 U/L (15-37); SGPT/ALT 15 U/L (13-61)
[2022-08-25 04:45] LABS: BILIRUBIN,TOTAL 0.6 mg/dL (0.2-1); TOT PROT 8.2 g/dl (6.4-8.2)
[2022-08-25 04:46] LABS: ALK PHOS 160 U/L (45-117)
[2022-08-25] MEDS ORDERED: MAGNESIUM SULF 50% (8.12 MEQ/2 ML-1 GM VIAL) IVPB ONE (05:29)
[2022-08-25] MEDS ORDERED: SODIUM BICARBONATE 650 MG TABLET PO SCH (06:00)
[2022-08-25 06:01] LABS: INR 1.24 (0.83-1.09); PROTHROMBIN TIME (PATIENT) 14.3 SEC (9.7-13.0)
[2022-08-25 06:04] LABS: ACTIVATED PTT 28.2 SECONDS (25.2-36.5)
[2022-08-25] MEDS ORDERED: MAGNESIUM SULFATE IN WATER 2 GM/50 ML IVPB IVPB ONE (06:52)
[2022-08-25 08:29] LABS: INR 1.27 (0.83-1.09); PROTHROMBIN TIME (PATIENT) 14.7 SEC (9.7-13.0)
[2022-08-25 08:31] LABS: ACTIVATED PTT 34.2 SECONDS (25.2-36.5)
[2022-08-25 08:43] LABS: EOS % 3.7 % (0-4.5); HEMOGLOBIN 8.6 GM/dL (11.7-16.9); LYMPH % 28.4 % (8-40); MCH 26.1 pg (25.7-33.7); MCHC 33.3 g/dl (32.0-35.9); MEAN CELL VOLUME 78.4 fl (80-96); MEAN PLT VOLUME 8.6 fl (7.5-11.1); NEUT % 55.9 % (42.8-82.8); PLATELET COUNT 240 10^3/uL (134-434); RBC 3.31 M/mm3 (4.00-5.60); RDW 14.9 % (11.9-15.9); WHITE BLOOD COUNT 5.3 K/mm3 (4.0-10.0)
[2022-08-25 08:45] LABS: CHLORIDE 105 mmol/L (98-107); SODIUM 138 mmol/L (136-145)
[2022-08-25 08:47] LABS: CALCIUM 8.5 mg/dL (8.5-10.1); MAGNESIUM 1.8 mg/dL (1.8-2.4)
[2022-08-25 08:48] LABS: ALBUMIN 3.1 g/dl (3.4-5.0); ANION GAP 7 MMOL/L (8-16); BLOOD UREA NITROGEN 72.6 mg/dL (7-18); CO2 26 mmol/L (21-32); GLUCOSE,RANDOM 199 mg/dL (74-106)
[2022-08-25 08:50] LABS: IRON SERUM 33 ug/dL (50-175); SGPT/ALT 15 U/L (13-61); TOTAL IRON BINDING CAPACITY 243 ug/dL (250-450)
[2022-08-25 08:51] LABS: PHOSPHOROUS 4.7 mg/dL (2.5-4.9); SGOT/AST 8 U/L (15-37)
[2022-08-25 08:53] LABS: BILIRUBIN,TOTAL 0.5 mg/dL (0.2-1); TOT PROT 7.6 g/dl (6.4-8.2)
[2022-08-25 08:54] LABS: ALK PHOS 147 U/L (45-117)
[2022-08-25 08:58] LABS: RETICULOCYTES 0.92 % (0.5-1.5)
[2022-08-25 09:02] LABS: CREATININE 8.1 mg/dL (0.55-1.3)
[2022-08-25] MEDS ORDERED: LIDOCAINE HCL 1%, 10 MG/ML (10ML VIAL) MDV ONE ×3 (09:18→10:24)
[2022-08-25] MEDS ORDERED: BACITRACIN ZINC 15 GM TUBE TOPICAL OINTMENT TP SCH (10:00)
[2022-08-25] MEDS ORDERED: amLODIPine BESYLATE 10 MG TABLET (FP) PO SCH (10:00)
[2022-08-25] MEDS ORDERED: PANTOPRAZOLE 40 MG TABLET PO SCH (10:00)
[2022-08-25] MEDS ORDERED: TORSEMIDE 20 MG TABLET (FP) PO SCH (10:00)
[2022-08-25] MEDS ORDERED: SODIUM ZIRCONIUM CYCLOSILICATE (LOKELMA) 5 GM PACKET PO SCH (10:00)
[2022-08-25] MEDS ORDERED: CARVEDILOL 6.25 MG TABLET (FP) PO SCH (10:00)
[2022-08-25] MEDS ORDERED: HEPARIN NA (PORCINE) 5,000 UNITS/ML 1ML VIAL ONE (10:11)
[2022-08-25] MEDS ORDERED: MIDAZOLAM HCL 2 MG/2 ML SINGLE DOSE VIAL ONE ×2 (10:18→12:12)
[2022-08-25] MEDS ORDERED: PAPAVERINE HCL 30 MG/1 ML 10 ML VIAL NR ONE (10:22)
[2022-08-25] MEDS ORDERED: ceFAZolin SODIUM 1 GM VIAL IVPB ONE (10:49)
[2022-08-25] MEDS ORDERED: PROPOFOL 20 ML ONE ×3 (10:50→10:51)
[2022-08-25] MEDS ORDERED: LIDOCAINE HCL 1%, 10 MG/ML (50 mL VIAL) INF ONE (11:29)
[2022-08-25] MEDS ORDERED: POVIDONE-IODINE OINTMENT 10% - 28.4 GM TUBE ONE (11:32)
[2022-08-25] MEDS ORDERED: SODIUM CHLORIDE 250 ML IV PRN ×2 (12:32→12:56)
[2022-08-25] MEDS ORDERED: ONDANSETRON 4 MG/2 ML VIAL IVPUSH PRN (12:48)
[2022-08-25] MEDS ORDERED: ACETAMINOPHEN 325 MG TABLET (FP) PO PRN (12:56)
[2022-08-25] MEDS ORDERED: oxyCODONE HCL 5 MG TABLET PO PRN ×2 (13:02→13:03)
[2022-08-25] MEDS ORDERED: INSULIN SLIDING SCALE (NOVOLOG) 1 VIAL SQ SCH (16:30)
[2022-08-25] MEDS: SODIUM BICARBONATE 650 MG TABLET PO SCH ×2 (21:38→23:43)
[2022-08-25] MEDS: BACITRACIN ZINC 15 GM TUBE TOPICAL OINTMENT TP SCH (21:38)
[2022-08-25] MEDS: CARVEDILOL 6.25 MG TABLET (FP) PO SCH (21:39)
[2022-08-25] MEDS: ACETAMINOPHEN 325 MG TABLET (FP) PO PRN (21:39)
[2022-08-25] MEDS ORDERED: INSULIN (NOVOLOG) ASPART 100 UNITS/ML 10ML VIAL ONE (21:46)
[2022-08-25] MEDS: INSULIN SLIDING SCALE (NOVOLOG) 1 VIAL SQ SCH (21:47)
[2022-08-26] MEDS: ACETAMINOPHEN 325 MG TABLET (FP) PO PRN ×3 (03:22→21:12)
[2022-08-26] MEDS: SODIUM BICARBONATE 650 MG TABLET PO SCH ×2 (05:09→14:31)
[2022-08-26] MEDS: INSULIN SLIDING SCALE (NOVOLOG) 1 VIAL SQ SCH ×6 (06:07→21:13)
[2022-08-26] MEDS ORDERED: INSULIN (NOVOLOG) ASPART 100 UNITS/ML 10ML VIAL ONE (06:20)
[2022-08-26] MEDS ORDERED: TORSEMIDE 20 MG TABLET (FP) PO SCH (10:00)
[2022-08-26] MEDS: PANTOPRAZOLE 40 MG TABLET PO SCH (10:38)
[2022-08-26] MEDS: BACITRACIN ZINC 15 GM TUBE TOPICAL OINTMENT TP SCH ×2 (10:38→21:20)
[2022-08-26] MEDS: amLODIPine BESYLATE 10 MG TABLET (FP) PO SCH (10:38)
[2022-08-26] MEDS: CARVEDILOL 6.25 MG TABLET (FP) PO SCH ×2 (10:38→21:13)
[2022-08-26 10:57] LABS: HEMATOCRIT 26.2 % (35.4-49); HEMOGLOBIN 8.7 GM/dL (11.7-16.9); MCH 26.2 pg (25.7-33.7); MCHC 33.3 g/dl (32.0-35.9); MEAN CELL VOLUME 78.6 fl (80-96); PLATELET COUNT 245 10^3/uL (134-434); RBC 3.34 M/mm3 (4.00-5.60); RDW 15.1 % (11.9-15.9); WHITE BLOOD COUNT 5.2 K/mm3 (4.0-10.0)
[2022-08-26 11:25] LABS: ALBUMIN 3.1 g/dl (3.4-5.0); CALCIUM 8.2 mg/dL (8.5-10.1)
[2022-08-26 11:26] LABS: BLOOD UREA NITROGEN 59.2 mg/dL (7-18); MAGNESIUM 1.8 mg/dL (1.8-2.4)
[2022-08-26 11:28] LABS: PHOSPHOROUS 4.3 mg/dL (2.5-4.9)
[2022-08-26 11:30] LABS: BILIRUBIN,TOTAL 0.5 mg/dL (0.2-1); TOT PROT 7.6 g/dl (6.4-8.2)
[2022-08-26] MEDS ORDERED: SODIUM CHLORIDE 250 ML IV PRN (16:27)
[2022-08-27] MEDS: INSULIN SLIDING SCALE (NOVOLOG) 1 VIAL SQ SCH ×4 (06:09→22:44)
[2022-08-27] MEDS ORDERED: EPOETIN ALFA-EPBX 10,000 UNIT/ML VIAL IVPUSH ONE (07:30)
[2022-08-27 08:56] LABS: HEMATOCRIT 25.9 % (35.4-49); HEMOGLOBIN 8.7 GM/dL (11.7-16.9); MCH 26.2 pg (25.7-33.7); MCHC 33.5 g/dl (32.0-35.9); MEAN CELL VOLUME 78.3 fl (80-96); MEAN PLT VOLUME 8.4 fl (7.5-11.1); PLATELET COUNT 259 10^3/uL (134-434); RBC 3.31 M/mm3 (4.00-5.60); RDW 14.8 % (11.9-15.9); WHITE BLOOD COUNT 5.6 K/mm3 (4.0-10.0)
[2022-08-27 09:28] LABS: BLOOD UREA NITROGEN 55.8 mg/dL (7-18); CALCIUM 8.2 mg/dL (8.5-10.1); MAGNESIUM 1.8 mg/dL (1.8-2.4)
[2022-08-27 09:31] LABS: CREATININE 7.2 mg/dL (0.55-1.3); PHOSPHOROUS 4.1 mg/dL (2.5-4.9)
[2022-08-27 09:32] LABS: BILIRUBIN,TOTAL 0.7 mg/dL (0.2-1); TOT PROT 7.4 g/dl (6.4-8.2)
[2022-08-27] MEDS: PANTOPRAZOLE 40 MG TABLET PO SCH (12:36)
[2022-08-27] MEDS: TORSEMIDE 20 MG TABLET (FP) PO SCH (12:36)
[2022-08-27] MEDS: CARVEDILOL 6.25 MG TABLET (FP) PO SCH ×2 (12:36→22:41)
[2022-08-27] MEDS: amLODIPine BESYLATE 10 MG TABLET (FP) PO SCH (12:36)
[2022-08-27] MEDS: BACITRACIN ZINC 15 GM TUBE TOPICAL OINTMENT TP SCH ×3 (12:40→22:44)
[2022-08-27] MEDS ORDERED: IBUPROFEN 400 MG TABLET (FP) PO ONE (16:43)
[2022-08-28] MEDS: INSULIN SLIDING SCALE (NOVOLOG) 1 VIAL SQ SCH ×2 (07:33→11:56)
[2022-08-28] MEDS: amLODIPine BESYLATE 10 MG TABLET (FP) PO SCH (10:04)
[2022-08-28] MEDS: TORSEMIDE 20 MG TABLET (FP) PO SCH (10:04)
[2022-08-28] MEDS: PANTOPRAZOLE 40 MG TABLET PO SCH (10:04)
[2022-08-28] MEDS: CARVEDILOL 6.25 MG TABLET (FP) PO SCH (10:04)
[2022-08-28] MEDS: BACITRACIN ZINC 15 GM TUBE TOPICAL OINTMENT TP SCH (10:05)
[2022-08-28 12:31] VITALS: BP 140/75; PULSE 86; RESP 20; TEMP 99.3
[2022-08-28 13:06] VITALS: BMI 37.7
== END 2022-08-28 15:24 | disposition home or self-care (01) | DRG 447 ==
LOC: JER 23:12 → JERBED 08-25 02:47 → OBSVTOIN 08-25 03:47 → J7W 08-25 18:49
PROVIDERS: ADMIT Internal Medicine; ATTEND Internal Medicine
PROC: B543ZZA Ultrasonography of Right Jugular Veins, Guidance (ICD-10-PCS; 2022-08-25)
PROC: 05HM33Z Insertion of Infusion Device into Right Internal Jugular Vein, Percutaneous Approach (ICD-10-PCS; 2022-08-25)
PROC: 031809D Bypass Left Brachial Artery to Upper Arm Vein with Autologous Venous Tissue, Open Approach (ICD-10-PCS; 2022-08-25)
PROC: 05BF3ZZ Excision of Left Cephalic Vein, Percutaneous Approach (ICD-10-PCS; 2022-08-25)
PROC: 5A1D70Z Performance of Urinary Filtration, Intermittent, Less than 6 Hours Per Day (ICD-10-PCS; 2022-08-25)
PROC: 0JH63XZ Insertion of Tunneled Vascular Access Device into Chest Subcutaneous Tissue and Fascia, Percutaneous Approach (ICD-10-PCS; principal; 2022-08-25 10:15)
PROC: 5A1D70Z Performance of Urinary Filtration, Intermittent, Less than 6 Hours Per Day (ICD-10-PCS; 2022-08-27)
DX: I12.0 Hypertensive chronic kidney disease with stage 5 chronic kidney disease or end stage renal disease (principal); N18.6 End stage renal disease; E11.22 Type 2 diabetes mellitus with diabetic chronic kidney disease; Z99.2 Dependence on renal dialysis; D63.1 Anemia in chronic kidney disease; E87.5 Hyperkalemia; N28.1 Cyst of kidney, acquired; R80.9 Proteinuria, unspecified; E87.70 Fluid overload, unspecified; E83.42 Hypomagnesemia; E66.9 Obesity, unspecified; Z68.37 Body mass index [BMI] 37.0-37.9, adult; E11.65 Type 2 diabetes mellitus with hyperglycemia
CPT/HCPCS: 36415; 71045-TC-FY; 71046-TC-FY; 73630-TC-RT-FY; 76000-TC-FY; 80053; 82728; 82962; 83540; 83550; 83735; 84100; 84484; 85025; 85027; 85045; 85610; 85730; 86704; 86705; 86803; 86900; 87081; 87340; 87517; 93005; 93010; 94760; 99285-25; C1750; C9803-CS; G0378; J1644; Q5106; U0003; U0005

== ENCOUNTER 2024-02-07 20:34 | Emergency (ER) | payer OTHER ==
[2024-02-07 20:44] VITALS: BMI 40.4
[2024-02-07 23:14] LABS: BASO % 1.2 % (0-2.0); HEMATOCRIT 29.8 % (35.4-49); HEMOGLOBIN 9.9 GM/dL (11.7-16.9); LYMPH % 17.8 % (8-40); MCH 27.6 pg (25.7-33.7); MCHC 33.2 g/dl (32.0-35.9); MEAN CELL VOLUME 82.9 fl (80-96); MEAN PLT VOLUME 8.4 fl (7.5-11.1); MONO % 8.9 % (3.8-10.2); NEUT % 70.1 % (42.8-82.8); PLATELET COUNT 270 10^3/uL (134-434); RDW 15.2 % (11.9-15.9); WHITE BLOOD COUNT 8.3 K/mm3 (4.0-10.0)
[2024-02-07 23:15] LABS: VENOUS BASE EXCESS -5.5 mmol/L (-2-2); VENOUS O2 SATURATION 85.4 % (70-80); VENOUS PCO2 43.1 mmHg (38-52); VENOUS PH 7.298 (7.310-7.410)
[2024-02-07 23:50] LABS: CHLORIDE 100 mmol/L (98-107); POTASSIUM 3.8 mmol/L (3.5-5.1); SODIUM 134 mmol/L (136-145)
[2024-02-07 23:52] LABS: ALBUMIN 3.5 g/dl (3.4-5.0); ANION GAP 13 mmol/L (4-13); CALCIUM 9.2 mg/dL (8.5-10.1); CO2 21 mmol/L (21-32)
[2024-02-07 23:53] LABS: BLOOD UREA NITROGEN 55.4 mg/dL (7-18); MAGNESIUM 1.5 mg/dL (1.8-2.4)
[2024-02-07 23:55] LABS: SGPT/ALT 15 U/L (13-61)
[2024-02-07 23:56] LABS: PHOSPHOROUS 4.5 mg/dL (2.5-4.9); SGOT/AST 13 U/L (15-37)
[2024-02-07 23:57] LABS: BILIRUBIN,TOTAL 0.4 mg/dL (0.2-1); TOT PROT 7.7 g/dl (6.4-8.2)
[2024-02-07 23:58] LABS: ALK PHOS 107 U/L (45-117)
[2024-02-08 00:03] LABS: CREATININE 7.7 mg/dL (0.55-1.3); GLUCOSE,RANDOM 451 mg/dL (74-106)
[2024-02-08] MEDS ORDERED: MAGNESIUM OXIDE 400 MG TABLET (FP) ONE (00:21)
[2024-02-08] MEDS ORDERED: INSULIN ASPART SLIDING SCALE (NOVOLOG) 1 VIAL SQ ONE ×3 (00:21→00:24)
[2024-02-08] MEDS: MAGNESIUM CL 64 MG TABLET.SA PO ONE (00:34)
[2024-02-08] MEDS: INSULIN (NOVOLOG) ASPART 100 UNITS/ML 10ML VIAL SQ ONE (00:34)
[2024-02-08] MEDS: MAGNESIUM OXIDE 400 MG TABLET (FP) PO ONE (00:34)
[2024-02-08 00:51] VITALS: BP 135/75; PULSE 81; RESP 20; TEMP 98.2
[2024-02-08 01:15] LABS: HIV INTERPRETATION NEGATIVE (NEGATIVE)
[2024-02-08] MEDS ORDERED: INSULIN (LEVEMIR) 100 UNITS/ML UNITS SQ ONE ×2 (01:34→01:48)
== END 2024-02-08 02:01 | disposition home or self-care (01) ==
LOC: JER 20:34
DX: E11.65 Type 2 diabetes mellitus with hyperglycemia (principal); M79.10 Myalgia, unspecified site
CPT/HCPCS: 36415; 71045-TC-FY; 80053; 82010; 82803; 82962; 83735; 84100; 85025; 86803; 87389; 93005; 93010; 99285-25

== ENCOUNTER 2024-04-19 21:50 | Observation (INO) | payer OTHER ==
[2024-04-19 22:41] LABS: BASO % 0.7 % (0-2.0); EOS % 2.7 % (0-4.5); HEMATOCRIT 36.4 % (35.4-49); HEMOGLOBIN 11.6 GM/dL (11.7-16.9); MCHC 31.8 g/dl (32.0-35.9); MEAN CELL VOLUME 84.7 fl (80-96); MONO % 7.7 % (3.8-10.2); NEUT % 65.9 % (42.8-82.8); PLATELET COUNT 314 10^3/uL (134-434); RBC 4.29 M/mm3 (4.00-5.60); RDW 15.3 % (11.9-15.9); WHITE BLOOD COUNT 6.3 K/mm3 (4.0-10.0)
[2024-04-19 22:50] LABS: INR 0.97 (0.83-1.09); PROTHROMBIN TIME (PATIENT) 11.2 SEC (9.7-13.0)
[2024-04-19 22:53] LABS: ACTIVATED PTT 34.1 SECONDS (25.2-36.5)
[2024-04-19 22:59] LABS: CHLORIDE 99 mmol/L (98-107); POTASSIUM 4.4 mmol/L (3.5-5.1); SODIUM 133 mmol/L (136-145)
[2024-04-19 23:00] LABS: BLOOD UREA NITROGEN 35.7 mg/dL (7-18)
[2024-04-19 23:02] LABS: ALBUMIN 3.8 g/dl (3.4-5.0); ANION GAP 8 mmol/L (4-13); CO2 26 mmol/L (21-32)
[2024-04-19 23:04] LABS: SGOT/AST 8 U/L (15-37); SGPT/ALT 13 U/L (13-61)
[2024-04-19 23:06] LABS: ALK PHOS 149 U/L (45-117); BILIRUBIN,TOTAL 0.4 mg/dL (0.2-1); TOT PROT 8.3 g/dl (6.4-8.2)
[2024-04-19 23:09] LABS: CREATININE 7.4 mg/dL (0.55-1.3); GLUCOSE,RANDOM 511 mg/dL (74-106)
[2024-04-19] MEDS ORDERED: INSULIN ASPART SLIDING SCALE (NOVOLOG) 1 VIAL SQ ONE (23:16)
[2024-04-19] MEDS: INSULIN REGULAR HUMAN 100 UNITS/ML *VIAL SQ ONE (23:21)
[2024-04-19 23:57] LABS: HIV INTERPRETATION NEGATIVE (NEGATIVE)
[2024-04-20] MEDS: INSULIN REGULAR HUMAN 100 UNITS/ML *VIAL SQ ONE (01:15)
[2024-04-20] MEDS: INSULIN (NOVOLOG) ASPART 100 UNITS/ML 10ML VIAL SQ ONE (02:34)
[2024-04-20 03:04] VITALS: RESP 18; BMI 42.7
[2024-04-20] MEDS: INSULIN ASPART SLIDING SCALE (NOVOLOG) 1 VIAL SQ SCH (06:12)
[2024-04-20] MEDS: PANTOPRAZOLE 20 MG TABLET PO SCH (06:14)
[2024-04-20] MEDS: ASPIRIN COATED 81 MG TABLET.EC PO SCH (09:12)
[2024-04-20] MEDS: amLODIPine BESYLATE 10 MG TABLET (FP) PO SCH (09:12)
[2024-04-20] MEDS: TORSEMIDE 20 MG TABLET (FP) PO SCH (09:12)
[2024-04-20 09:14] LABS: BASO % 0.3 % (0-2.0); EOS % 2.6 % (0-4.5); HEMATOCRIT 30.9 % (35.4-49); LYMPH % 17.1 % (8-40); MCH 27.1 pg (25.7-33.7); MCHC 32.3 g/dl (32.0-35.9); MEAN CELL VOLUME 83.7 fl (80-96); MONO % 10.4 % (3.8-10.2); NEUT % 69.6 % (42.8-82.8); PLATELET COUNT 313 10^3/uL (134-434); RBC 3.69 M/mm3 (4.00-5.60); RDW 14.8 % (11.9-15.9); WHITE BLOOD COUNT 7.3 K/mm3 (4.0-10.0)
[2024-04-20 09:24] LABS: CHLORIDE 103 mmol/L (98-107); POTASSIUM 4.2 mmol/L (3.5-5.1); SODIUM 136 mmol/L (136-145)
[2024-04-20 09:29] LABS: ALBUMIN 3.6 g/dl (3.4-5.0); ANION GAP 6 mmol/L (4-13); BLOOD UREA NITROGEN 41.3 mg/dL (7-18); CALCIUM 9.4 mg/dL (8.5-10.1); CO2 27 mmol/L (21-32); GLUCOSE,RANDOM 174 mg/dL (74-106)
[2024-04-20 09:30] LABS: MAGNESIUM 1.7 mg/dL (1.8-2.4)
[2024-04-20 09:33] LABS: PHOSPHOROUS 3.1 mg/dL (2.5-4.9); SGOT/AST 7 U/L (15-37)
[2024-04-20 09:34] LABS: SGPT/ALT 13 U/L (13-61)
[2024-04-20 09:35] LABS: BILIRUBIN,TOTAL 0.5 mg/dL (0.2-1)
[2024-04-20 09:36] LABS: TOT PROT 7.6 g/dl (6.4-8.2)
[2024-04-20 09:37] LABS: ALK PHOS 137 U/L (45-117)
[2024-04-20 09:41] LABS: CREATININE 7.8 mg/dL (0.55-1.3)
[2024-04-20] MEDS: MAGNESIUM 2GM/50ML STERILE WATER IVPB IVPB ONE (11:48)
[2024-04-20] MEDS ORDERED: SODIUM CHLORIDE 250 ML IV PRN (12:00)
[2024-04-20] MEDS: EPOETIN ALFA-EPBX 10,000 UNIT/ML VIAL SQ ONE (15:09)
[2024-04-20 15:22] VITALS: TEMP 98.2
[2024-04-20 16:19] VITALS: BP 152/76; PULSE 77
[2024-04-20] MEDS ORDERED: INSULIN (LEVEMIR) 100 UNITS/ML UNITS SQ SCH (22:00)
[2024-04-20] MEDS ORDERED: ATORVASTATIN CA 20 MG TABLET (FP) PO SCH (22:00)
== END 2024-04-20 18:12 | disposition home or self-care (01) ==
LOC: JER 21:50 → JERBED 22:15 → J5S 04-20 03:19
PROVIDERS: ADMIT Internal Medicine
PROC: 3E033GC Introduction of Other Therapeutic Substance into Peripheral Vein, Percutaneous Approach (ICD-10-PCS; principal; 2024-04-19)
PROC: 3E0337Z Introduction of Electrolytic and Water Balance Substance into Peripheral Vein, Percutaneous Approach (ICD-10-PCS; 2024-04-19)
DX: I12.0 Hypertensive chronic kidney disease with stage 5 chronic kidney disease or end stage renal disease (principal); E11.22 Type 2 diabetes mellitus with diabetic chronic kidney disease; N18.6 End stage renal disease; Z99.2 Dependence on renal dialysis; R20.8 Other disturbances of skin sensation; K21.9 Gastro-esophageal reflux disease without esophagitis; Z87.891 Personal history of nicotine dependence; Z91.018 Allergy to other foods
CPT/HCPCS: 0241U-QW; 36415; 80053; 82962; 83036; 83735; 84100; 85025; 85610; 85730; 86704; 86803; 86850; 86900; 86901; 87340; 87389; 87517; 93005; 93010; 96372; 96374; 99285-25; G0378; Q5106